=== PATIENT | female | born 1975 | race Caucasian/White ===

== ENCOUNTER 2017-07-11 11:38 | Inpatient (IN) | payer OTHER ==
[~2017-07-11] VITALS: Ht 167.6 cm; Wt 94.7 kg
[~2017-07-11 11:38] MED LIST: ALPR0.5T3 PO; AMLO5 PO; CALC.25 PO; DRIS50002 PO; LISI-515 PO; OYST500T11 PO; PERC5TAB12 PO; POTA20TA5 PO; PROZ40CA PO; SYNT88TA PO; XARE15TA PO
[2017-07-11 11:42] VITALS: BP_SYST 165; BP_DIAS 11; BP_DIAS 111; PULSE 77; RESP 18; TEMP 98.1; O2SAT 95
[2017-07-11] MEDS ORDERED: POTA-163 PO (11:54)
[2017-07-11] MEDS ORDERED: VITA1000 PO (11:54)
[2017-07-11] MEDS ORDERED: SODIUM CHLORIDE 0.9% FLUSH 10 ML FLUSH IVF PRN (12:15)
[2017-07-11] MEDS ORDERED: KETOROLAC TROMETHAMINE 30 MG/ML (IVP) VIAL IVP ONE (12:30)
[2017-07-11 12:51] LABS: BASOPHIL # 0.1 TH/MM3 (0-0.2); BASOPHIL % 1.4 % (0.0-2.0); HEMATOCRIT 40.9 % (35.0-46.0); HEMO FLAGS DIFF FINAL; LYMPH % 23.1 % (9.0-44.0); LYMPHOCYTE # 1.1 TH/MM3 (1.0-4.8); MEAN CELL VOLUME 93.3 FL (80.0-100.0); MEAN CORPUSCULAR HEMOGLOBIN 31.1 PG (27.0-34.0); MEAN CORPUSCULAR HGB CONC 33.3 % (32.0-36.0); MONO % 10.2 % (0.0-8.0); NEUT % 64.3 % (16.0-70.0); PLATELET COUNT 110 TH/MM3 (150-450); RED BLOOD COUNT 4.38 MIL/MM3 (4.00-5.30); RED CELL DISTRIBUTION WIDTH 12.6 % (11.6-17.2); WHITE BLOOD COUNT 4.7 TH/MM3 (4.0-11.0)
[2017-07-11 13:13] LABS: MAGNESIUM 1.1 MG/DL (1.5-2.5)
[2017-07-11 13:17] LABS: POTASSIUM 1.9 MEQ/L (3.5-5.1)
--- NOTE | 2017-07-11 13:23 | PD ---
HPI Chief Complaint: Back/ Neck Pain or Injury Time Seen by Provider: 12:11 Travel History International Travel<30 days: No Contact w/Intl Traveler<30days: No Traveled to known affect area: No History of Present Illness HPI 42-year-old female here with bilateral lower back pain radiating into the legs for the last 3 days. She believes the pain originated after she started a workout routine approximately a week ago. She denies fever, chills, incontinence, saddle anesthesia, paresthesia or weakness of the extremities. This morning she reports when she stood up from a standing position she fell to the ground because the pain in her low back was so severe. She also reports she feels "weak". She had similar symptoms previously approximately a year ago when she was found to have hypocalcemia and hypokalemia. She reports she is currently on potassium supplementation. PFSH Past Medical History Anxiety: Yes Cardiovascular Problems: Yes (HTN) Diminished Hearing: No Gastrointestinal Disorders: No Genitourinary: No Hypertension: Yes Musculoskeletal: Yes Neurologic: No Reproductive: No Respiratory: No Thyroid Disease: Yes (HYPO) Tetanus Vaccination: Unknown Influenza Vaccination: No ?: Not LMP: 07/05/17 : 3 Para: 1 Miscarriage: 0 : 2 Past Surgical History Appendectomy: Yes Section: Yes Gynecologic Surgery: Yes (C SECTION) Other Surgery: Yes (Breast implants) Social History Alcohol Use: Yes (OCCASIONALLY) Tobacco Use: No Substance Use: No Allergies-Medications (Allergen,Severity, Reaction): Coded Allergies: No Known Allergies (Verified Adverse Reaction, Unknown, 07/11/17) Reported Meds & Prescriptions Reported Meds & Active Scripts Active Synthroid (Levothyroxine Sodium) 88 Mcg Tab 88 Mcg PO DAILY@0600 Rocaltrol (Calcitriol) 0.25 Mcg Cap 0.25 Mcg PO DAILY Norvasc (Amlodipine Besylate) 5 Mg Tab 5 Mg PO DAILY Reported Potassium Chloride ER (Potassium Chloride) 20 Meq Tab 99 Meq PO DAILY Vitamin D-1000 (Cholecalciferol) 1,000 Unit Tab 50,000 Units PO WEEKLY Prozac (Fluoxetine HCl) 40 Mg Cap 40 Mg PO DAILY Lisinopril 20 Mg Tab 20 Mg PO DAILY Alprazolam 0.5 Mg Tab 0.5 Mg PO Q6H PRN Review of Systems Except as stated in HPI: all other systems reviewed are Neg Physical Exam Narrative GENERAL: Alert well-appearing female in no distress. SKIN: Warm and dry. HEAD: Normocephalic. EYES: No scleral icterus. No injection or drainage. NECK: Supple, trachea midline. No JVD or lymphadenopathy. CARDIOVASCULAR: Regular rate and rhythm without murmurs, gallops, or rubs. RESPIRATORY: Breath sounds equal bilaterally. No accessory muscle use. GASTROINTESTINAL: Abdomen soft, non-tender, nondistended. MUSCULOSKELETAL: No cyanosis, or edema. BACK: Bilateral tenderness to the low lumbar or spinous musculature . No midline spine tenderness. without obvious deformity. No CVA tenderness. NEUROLOGICAL: Awake and alert. Cranial nerves II through XII intact. Motor and sensory grossly within normal limits. Five out of 5 muscle strength in all muscle groups. Normal speech. Data Data Last Documented VS Vital Signs Date Time Temp Pulse Resp B/P (MAP) Pulse Ox O2 Delivery O2 Flow Rate FiO2 07/11/17 11:42 98.1 77 18 165/111 (129) 95 Orders Orders Basic Metabolic Panel (Bmp) (07/11/17 12:14) Complete Blood Count With Diff (07/11/17 12:14) Magnesium (Mg) (07/11/17 12:14) Iv Access Insert/Monitor (07/11/17 12:14) Sodium Chloride 0.9% Flush (Ns Flush) (07/11/17 12:15) Urinalysis - C+S If Indicated (07/11/17 12:16) Ketorolac Inj (Toradol Inj) (07/11/17 12:30) Protein Corrected Calcium(Pcc) (07/11/17 12:38) Ecg Monitoring (07/11/17 13:38) Oximetry (07/11/17 13:38) Thyroid Stimulating Hormone (07/11/17 13:38) Free T3 (07/11/17 13:38) Free Thyroxine (T4) (07/11/17 13:38) Potassium Chloride Eff (K-Lyte Cl Eff) (07/11/17 13:45) Electrocardiogram (07/11/17 13:43) Sodium Chlor 0.9% 1... W/Potassium Chlor (07/11/17 14:00) Sodium Chlor 0.9% 1000 Ml Inj (Ns 1000 M (07/11/17 14:00) Magnesium Oxide (Mag-Ox) (07/11/17 14:00) Potassium Chlor 20 Meq Premix (Kcl 20 Me (07/11/17 14:00) Labs Laboratory Tests Test 07/11/17 12:38 White Blood Count 4.7 TH/MM3 Red Blood Count 4.38 MIL/MM3 Hemoglobin 13.6 GM/DL Hematocrit 40.9 % Mean Corpuscular Volume 93.3 FL Mean Corpuscular Hemoglobin 31.1 PG Mean Corpuscular Hemoglobin Concent 33.3 % Red Cell Distribution Width 12.6 % Platelet Count 110 TH/MM3 Mean Platelet Volume 10.3 FL Neutrophils (%) (Auto) 64.3 % Lymphocytes (%) (Auto) 23.1 % Monocytes (%) (Auto) 10.2 % Eosinophils (%) (Auto) 1.0 % Basophils (%) (Auto) 1.4 % Neutrophils # (Auto) 3.0 TH/MM3 Lymphocytes # (Auto) 1.1 TH/MM3 Monocytes # (Auto) 0.5 TH/MM3 Eosinophils # (Auto) 0.0 TH/MM3 Basophils # (Auto) 0.1 TH/MM3 CBC Comment DIFF FINAL Differential Comment Blood Urea Nitrogen 5 MG/DL Creatinine 0.45 MG/DL Random Glucose 111 MG/DL Total Protein 7.8 GM/DL Calcium Level 7.4 MG/DL Magnesium Level 1.1 MG/DL Sodium Level 136 MEQ/L Potassium Level 1.9 MEQ/L Chloride Level 92 MEQ/L Carbon Dioxide Level 36.0 MEQ/L Anion Gap 8 MEQ/L Estimat Glomerular Filtration Rate 153 ML/MIN Protein Corrected Calcium 7.1 MG/DL [facility] Medical Decision Making Medical Screen Exam Complete: Yes Emergency Medical Condition: Yes Interpretation(s) Calcium 7.4 Potassium 1.9 EKG: sinus rhythm, rate 67, QT/QTc 422/437 Differential Diagnosis Musculoskeletal low back pain, sciatica, electrolyte abnormality Narrative Course 42-year-old female with history of hypothyroidism, hypertension, anxiety here with low back pain 3 days. Patient attributed the back pain to a new workout regimen she started approximately a week ago. Today the pain intensified and she had difficulty standing due to the pain in her thighs. Patient had a similar episode approximately one year ago where she was found to be severely hypokalemic with a potassium of 1.5. This was thought to be caused by her diuretic hydrochlorothiazide. She has been on potassium supplements since this event and taken off of the diuretic. The patient's history basic lab work was obtained Labs were reviewed. Potassium 1.9, calcium 7.4., Magnesium 1.1 Diagnosis Primary Impression: Hypokalemia Additional Impression: Hypocalcemia Iwona Canela Jul 11, 2017 13:23
[2017-07-11 13:36] LABS: CALCIUM-PROTEIN CORRECTED 7.1 MG/DL (8.5-10.1)
[2017-07-11] MEDS ORDERED: POTASSIUM CHLORIDE 25 MEQ EFFERVESCENT TAB PO ONE (13:45)
[2017-07-11] MEDS ORDERED: POTASSIUM CHLOR 20 MEQ PREMIX 100 ML IV ONE (14:00)
[2017-07-11] MEDS ORDERED: POTASSIUM CHLORIDE INJ 10 MEQ in SODIUM CHLOR 0.9% 1000 ML INJ 1,000 ML IV SCH (14:00)
[2017-07-11] MEDS ORDERED: SODIUM CHLOR 0.9% 1000 ML INJ 1,000 ML IV ONE (14:00)
[2017-07-11] MEDS ORDERED: MAGNESIUM OXIDE 400 MG TAB PO ONE (14:00)
[2017-07-11 14:10] VITALS: BP 150/76; PULSE 72; RESP 16; O2SAT 98; O2SAT 99
[2017-07-11] MEDS ORDERED: NALOXONE HCL 0.4 MG/ML AMP IV PUSH PRN (14:45)
[2017-07-11] MEDS ORDERED: SODIUM CHLORIDE 0.9% FLUSH 10 ML FLUSH IV FLUSH PRN (14:45)
[2017-07-11 15:00] VITALS: BP 140/86; PULSE 66; RESP 16; TEMP 98.2; O2SAT 96
[2017-07-11] MEDS ORDERED: BISACODYL 10 MG SUPP RECTAL PRN (15:00)
[2017-07-11] MEDS ORDERED: ACETAMINOPHEN 325 MG TAB PO PRN (15:00)
[2017-07-11] MEDS: POTASSIUM CHLOR 20 MEQ PREMIX 100 ML IV SCH ×3 (15:00→22:39)
[2017-07-11] MEDS ORDERED: LACTULOSE SYRUP 20 GM/30 ML CUP PO PRN (15:00)
[2017-07-11 15:02] VITALS: BP 142/93; PULSE 72; RESP 16; O2SAT 97
[2017-07-11] MEDS: MAGNESIUM SULFATE 1 GM PREMIX 100 ML IV SCH ×3 (16:00→19:01)
[2017-07-11 16:02] VITALS: BP 159/98; PULSE 72; RESP 16; O2SAT 98
[2017-07-11 16:09] LABS: FREE T3 2.96 PG/ML (2.18-3.98); FREE T4 1.86 NG/DL (0.76-1.46)
--- NOTE | 2017-07-11 17:39 | HHI.HP ---
[facility] Spike Wilkerson MD Admission Diagnosis hypokalemia, hypocalcemia, hypomagnesemia Diagnoses: (1) Hypokalemia Diagnosis: Principal (2) Hypomagnesemia Diagnosis: Principal (3) Hypocalcemia Diagnosis: Principal Chief Complaint: Back pain Travel History International Travel<30 Days: No Contact w/Intl Traveler <30 Da: No Traveled to Known Affected Are: No History of Present Illness Written by Livan Kenny, acting as scribe for Dr. Corbett on 07/11/17 at 17: 28. 42-year-old female with known history of hypertension, hypothyroidism , history of electrolyte disturbance, vegetarian who presented to the hospital because of back pain. Patient indicates that it is many years since she has been on any diet or exercise. She had her ankle surgery done one year ago and she thought that it was healed enough for her to start working out. Patient started doing physical activity and of last week and she developed significant back pain over the weekend. She did go to work yesterday but today when she was getting ready for work her back hurt too bad so she came to the emergency department for evaluation. Patient had evaluation done emergency department. The family and patient requested laboratory studies be performed because a year ago she had significant electrolyte disturbance and she has not been any replacement therapy since then. Patient had workup done to find that she has recurrent hypokalemia, hypocalcemia, hypomagnesium. Patient had extensive workup done a year ago with nephrology consultation who indicated that some of her deficiencies was related to HCTZ which was discontinued as well as her vegetarian lifestyle. It was recommended that she ingests increased plant protein in her HCTZ was discontinued. Patient is completely asymptomatic of electrolyte or maladies. She denies any weakness, paresthesia, muscle cramps, spasms, tremors. Patient indicates that she has not had any recurrent electrolyte abnormalities in outpatient setting. Patient does indicate that she does drink at least a gallon of water a day. She has just gotten off of her menses and she states that she does usually have very heavy diarrhea associated with her menses. Patient continues to be asymptomatic. It was recommended by the ER physician that the patient be admitted for further evaluation and management. Review of Systems Musculoskeletal: COMPLAINS OF: Back pain Except as stated in HPI: all other systems reviewed are Neg Past Family Social History Past Medical History Hypertension Hypothyroidism History of electrolyte abnormalities with hypokalemia, hypomagnesemia, hypocalcemia vegetarian Past Surgical History Left ankle surgery Appendectomy Breast augmentation Reported Medications Reported Meds & Active Scripts Active Synthroid (Levothyroxine Sodium) 88 Mcg Tab 88 Mcg PO DAILY@0600 Rocaltrol (Calcitriol) 0.25 Mcg Cap 0.25 Mcg PO DAILY Norvasc (Amlodipine Besylate) 5 Mg Tab 5 Mg PO DAILY Reported Potassium Chloride ER (Potassium Chloride) 20 Meq Tab 99 Meq PO DAILY Vitamin D-1000 (Cholecalciferol) 1,000 Unit Tab 50,000 Units PO WEEKLY Prozac (Fluoxetine HCl) 40 Mg Cap 40 Mg PO DAILY Lisinopril 20 Mg Tab 20 Mg PO DAILY Alprazolam 0.5 Mg Tab 0.5 Mg PO Q6H PRN Allergies: Coded Allergies: No Known Allergies (Verified Allergy, Unknown, 07/11/17) Family History Reviewed and unremarkable for any heart disease, lung disease, diabetes, cancer , seizures, stroke Social History Patient quit smoking 10 years ago, prior to that she smoked one pack a cigarettes a day since she was 21 years old. She denies any alcohol or illicit drug Physical Exam Vital Signs Vital Signs Date Time Temp Pulse Resp B/P (MAP) Pulse Ox O2 Delivery O2 Flow Rate FiO2 07/11/17 16:22 07/11/17 16:02 72 16 159/98 (118) 98 Room Air 07/11/17 15:02 72 16 142/93 (109) 97 Room Air 07/11/17 14:25 16 07/11/17 14:10 16 () 99 Room Air 07/11/17 11:42 98.1 77 18 165/111 (129) 95 Physical Exam GENERAL: Well-developed, well-nourished, in no acute distress. alert and orientated HEENT: Head is normocephalic without any lesions or masses noted. Facial features are symmetric. Eyes: Pupils equal round reactive to light. Extraocular muscles are intact. Conjunctivae were clear. Oropharyngeal: Pharynx without any erythema edema. Tongue is midline without deviation. Buccal mucosa is moist without any masses or lesions NECK: Supple without any masses. Trachea midline no deviation. No JVD, no bruits are appreciated CARDIAC: Regular rhythm, regular rate. S1/S2 are heard. No murmurs gallops or rubs. LUNGS: Clear to auscultation bilaterally. No wheeze, rhonchi or rales. No use of accessory muscles on inspiration or expiration. ABDOMEN: Soft, nontender. Nondistended. Bowel sounds heard in all 4 quadrants. No organomegaly or masses. Negative rebound, negative guarding EXTREMITIES: No edema, pulses are equal bilaterally. No cyanosis or clubbing NEUROLOGY: Mood and affect appear appropriate. Cranial nerves II through XII grossly intact. Muscle strength 5/5 in upper and lower extremities bilaterally. Deep tendon reflexes are 2+ in upper and lower extremities bilaterally. Laboratory Laboratory Tests Test 07/11/17 12:38 White Blood Count 4.7 Red Blood Count 4.38 Hemoglobin 13.6 Hematocrit 40.9 Mean Corpuscular Volume 93.3 Mean Corpuscular Hemoglobin 31.1 Mean Corpuscular Hemoglobin Concent 33.3 Red Cell Distribution Width 12.6 Platelet Count 110 Mean Platelet Volume 10.3 Neutrophils (%) (Auto) 64.3 Lymphocytes (%) (Auto) 23.1 Monocytes (%) (Auto) 10.2 Eosinophils (%) (Auto) 1.0 Basophils (%) (Auto) 1.4 Neutrophils # (Auto) 3.0 Lymphocytes # (Auto) 1.1 Monocytes # (Auto) 0.5 Eosinophils # (Auto) 0.0 Basophils # (Auto) 0.1 CBC Comment DIFF FINAL Differential Comment Blood Urea Nitrogen 5 Creatinine 0.45 Random Glucose 111 Total Protein 7.8 Calcium Level 7.4 Magnesium Level 1.1 Sodium Level 136 Potassium Level 1.9 Chloride Level 92 Carbon Dioxide Level 36.0 Anion Gap 8 Estimat Glomerular Filtration Rate 153 Protein Corrected Calcium 7.1 Free Thyroxine 1.86 Free Triiodothyronine (T3) pg/dL 2.96 Thyroid Stimulating Hormone 3rd Gen 3.770 Result Diagram: 07/11/17 1238 07/11/17 1238 Caprini VTE Risk Assessment Caprini VTE Risk Assessment: Mod/High Risk (score >= 2) Caprini Risk Assessment Model Point Value = 1 Point Value = 2 Point Value = 3 Point Value = 5 Age 41-60 Minor surgery BMI > 25 kg/m2 Swollen legs Varicose veins or History of unexplained or recurrent spontaneous Oral contraceptives or hormone replacement Sepsis (< 1 month) Serious lung disease, including pneumonia (< 1 month) Abnormal pulmonary function Acute myocardial infarction Congestive heart failure (< 1 month) History of inflammatory bowel disease Medical patient at bed rest Age 61-74 Arthroscopic surgery Major open surgery (> 45 min) Laparoscopic surgery (> 45 min) Malignancy Confined to bed (> 72 hours) Immobilizing plaster cast Central venous access Age >= 75 History of VTE Family history of VTE Factor V Leiden Prothrombin [id number] Lupus anticoagulant Anticardiolipin antibodies Elevated serum homocysteine Heparin-induced thrombocytopenia Other congenital or acquired thrombophilia Stroke (< 1 month) Elective arthroplasty Hip, pelvis, or leg fracture Acute spinal cord injury (< 1 month) Prophylaxis Regimen Total Risk Factor Score Risk Level Prophylaxis Regimen 0-1 Low Early ambulation 2 Moderate Order ONE of the following: *Sequential Compression Device (SCD) *Heparin 5000 units SQ BID 3-4 Higher Order ONE of the following medications: *Heparin 5000 units SQ TID *Enoxaparin/Lovenox 40 mg SQ daily (WT < 150 kg, CrCl > 30 mL/min) *Enoxaparin/Lovenox 30 mg SQ daily (WT < 150 kg, CrCl > 10-29 mL/min) *Enoxaparin/Lovenox 30 mg SQ BID (WT < 150 kg, CrCl > 30 mL/min) AND/OR *Sequential Compression Device (SCD) 5 or more Highest Order ONE of the following medications: *Heparin 5000 units SQ TID (Preferred with Epidurals) *Enoxaparin/Lovenox 40 mg SQ daily (WT < 150 kg, CrCl > 30 mL/min) *Enoxaparin/Lovenox 30 mg SQ daily (WT < 150 kg, CrCl > 10-29 mL/min) *Enoxaparin/Lovenox 30 mg SQ BID (WT < 150 kg, CrCl > 30 mL/min) AND *Sequential Compression Device (SCD) Assessment and Plan Assessment and Plan Electrolyte abnormalities with hypocalcemia, hypokalemia, hypomagnesemia Likely secondary to combination of excessive water ingestion, recent diarrhea , vegetarian diet Will replace with IV magnesium sulfate, IV and PO KCL, IV calcium gluconate. Repeat BMP and Mg level in the AM. Continue Calcitriol 0.25mcg Qday. Hypertension continue home medication Lisinopril 20mg Qday as well as Amlodipine 5mg Qday. Hypothyroidism TSH 3.77. Continue Levothyroxine 88mcg Qday. Full code. SCDs. This note was transcribed by humble Kenny PA-C. I, Dr. Josse Corbett personally performed the history, physical exam, and medical decision making; and confirmed the accuracy of the information in the transcribed note. Authenticated by Dr. Josse Corbett on 07/11/17 at 17:28. Physician Certification 2 Midnight Certification Type: Admission for Inpatient Services Order for Inpatient Services The services are ordered in accordance with Medicare regulations or non- Medicare payer requirements, as applicable. In the case of services not specified as inpatient-only, they are appropriately provided as inpatient services in accordance with the 2-midnight benchmark. Estimated LOS (days): 2 days is the estimated time the patient will need to remain in the hospital, assuming treatment plan goals are met and no additional complications. Post-Hospital Plan: Not yet determined Livan Kenny Jul 11, 2017 17:39 Janie Corbett DO Jul 11, 2017 23:42
[2017-07-11] MEDS ORDERED: ONDANSETRON HCL 4 MG/2 ML VIAL IVP PRN (18:00)
[2017-07-11] MEDS ORDERED: CALCIUM GLUCONATE INJ 2 GM in SODIUM CHLORIDE 0.9% INJ 100 ML IV ONE (19:00)
[2017-07-11] MEDS: SODIUM CHLORIDE 0.9% FLUSH 10 ML FLUSH IV FLUSH SCH (21:00)
[2017-07-11] MEDS ORDERED: SENNOSIDES 8.6 MG TAB PO PRN (21:00)
[2017-07-11] MEDS ORDERED: MAGNESIUM HYDROXIDE SUSP 30 ML CUP PO PRN (21:00)
--- NOTE | 2017-07-11 21:54 | EKG ---
Date Performed: 07/11/2017 Time Performed: 13:53:19 PTAGE: 42 years EKG: Sinus rhythm INCOMPLETE RIGHT BUNDLE BRANCH BLOCK NONSPECIFIC ST & T-WAVE ABNORMALITY BORDERLINE ECG PREVIOUS TRACING : 07/14/2016 09.54 Compared to prior tracing no significant change DOCTOR: João Fallon Interpretating Date/Time 07/11/2017 21:54:09
[2017-07-11] MEDS: POTASSIUM CHLORIDE 20 MEQ CONTROLLED RELEASE TAB PO SCH ×2 (22:00→22:40)
[2017-07-12] MEDS: MAGNESIUM SULFATE 1 GM PREMIX 100 ML IV SCH ×3 (02:03→02:04)
[2017-07-12] MEDS: POTASSIUM CHLOR 20 MEQ PREMIX 100 ML IV SCH ×3 (02:03→09:55)
[2017-07-12 04:00] VITALS: BP 154/103; PULSE 65; RESP 20; TEMP 98.1; O2SAT 94
[2017-07-12] MEDS: POTASSIUM CHLORIDE 20 MEQ CONTROLLED RELEASE TAB PO SCH (06:00)
[2017-07-12] MEDS: LEVOTHYROXINE SODIUM 88 MCG TAB PO SCH (06:12)
[2017-07-12 06:29] LABS: AUTOMATED NEUTROPHIL # 2.7 TH/MM3 (1.8-7.7); BASOPHIL % 0.8 % (0.0-2.0); EOSINOPHIL % 0.7 % (0.0-4.0); HEMATOCRIT 37.2 % (35.0-46.0); LYMPH % 23.7 % (9.0-44.0); MEAN CELL VOLUME 93.7 FL (80.0-100.0); MEAN CORPUSCULAR HEMOGLOBIN 31.1 PG (27.0-34.0); MEAN CORPUSCULAR HGB CONC 33.2 % (32.0-36.0); MONO % 9.9 % (0.0-8.0); NEUT % 64.9 % (16.0-70.0); PLATELET COUNT 94 TH/MM3 (150-450); RED BLOOD COUNT 3.97 MIL/MM3 (4.00-5.30); RED CELL DISTRIBUTION WIDTH 13.3 % (11.6-17.2); WHITE BLOOD COUNT 4.1 TH/MM3 (4.0-11.0)
[2017-07-12 06:47] LABS: HEMO FLAGS AUTO DIFF
[2017-07-12 06:56] LABS: BICARBONATE 36.8 MEQ/L (21.0-32.0); MAGNESIUM 1.5 MG/DL (1.5-2.5)
[2017-07-12 07:00] LABS: POTASSIUM 1.9 MEQ/L (3.5-5.1)
[2017-07-12 07:19] LABS: PLATELET ESTIMATE SMEAR LOW (NORMAL); PLATELET MORPHOLOGY NORMAL (NORMAL); SCAN/DIFF AUTO DIFF CONFIRMED
[2017-07-12 07:50] VITALS: BP 161/76; PULSE 74; RESP 20; TEMP 98.2; O2SAT 93
[2017-07-12] MEDS ORDERED: NS + KCL 20 MEQ INJ 1,000 ML IV ONE (08:15)
[2017-07-12] MEDS: amLODIPine BESYLATE 5 MG TAB PO SCH (08:36)
[2017-07-12] MEDS: SODIUM CHLORIDE 0.9% FLUSH 10 ML FLUSH IV FLUSH SCH ×2 (08:36→20:56)
[2017-07-12] MEDS: FLUoxetine HCL 20 MG CAP PO SCH (08:36)
[2017-07-12] MEDS: LISINOPRIL 20 MG TAB PO SCH (08:45)
[2017-07-12] MEDS: CALCITRIOL 0.25 MCG CAP PO SCH (08:45)
[2017-07-12] MEDS ORDERED: CALCIUM GLUCONATE INJ 2 GM in SODIUM CHLORIDE 0.9% INJ 100 ML IV ONE ×2 (09:00→22:00)
[2017-07-12] MEDS ORDERED: MAGNESIUM OXIDE 400 MG TAB PO ONE (10:15)
--- NOTE | 2017-07-12 10:27 | HHI.PR ---
Subjective Remarks Patient admitted to [facility] yesterday and was found to be a [facility] patient and transferred to my service today admitted for hypokalemia and hypocalcemia and hypomagnesium,patient just completed heavy period and always has diarrhea with period and runs baseline low potassium and is on supplement . Patient not 100% sure as to foods to eat will have dietary speak to her . el this am was 1.9 potassium and calcium low on IV treatment and will add po treatment as well stop potassium tablet was unable to take it. Objective Vitals GENERAL: SKIN: Warm and dry. HEAD: Atraumatic. Normocephalic. EYES: Pupils equal and round. No scleral icterus. No injection or drainage. ENT: No nasal bleeding or discharge. Mucous membranes pink and moist. NECK: Trachea midline. No JVD. CARDIOVASCULAR: Regular rate and rhythm. RESPIRATORY: No accessory muscle use. Clear to auscultation. Breath sounds equal bilaterally. GASTROINTESTINAL: Abdomen soft, non-tender, nondistended. Hepatic and splenic margins not palpable. MUSCULOSKELETAL: Extremities without clubbing, cyanosis, or edema. No obvious deformities. NEUROLOGICAL: Awake and alert. No obvious cranial nerve deficits. Motor grossly within normal limits. Five out of 5 muscle strength in the arms and legs. Normal speech. PSYCHIATRIC: Appropriate mood and affect; insight and judgment normal. Vital Signs Date Time Temp Pulse Resp B/P (MAP) Pulse Ox O2 Delivery O2 Flow Rate FiO2 07/12/17 07:50 98.2 74 20 161/76 (104) 93 07/12/17 04:00 98.1 65 20 154/103 (120) 94 07/11/17 16:22 07/11/17 16:02 72 16 159/98 (118) 98 Room Air 07/11/17 15:02 72 16 142/93 (109) 97 Room Air 07/11/17 15:00 98.2 66 16 140/86 (104) 96 07/11/17 14:25 16 07/11/17 14:10 16 () 99 Room Air 07/11/17 11:42 98.1 77 18 165/111 (129) 95 Result Diagram: 07/12/17 0515 07/12/17 0515 A/P Problem List: (1) Hypokalemia ICD Codes: E87.6 - Hypokalemia Status: Acute Plan: continue IV treatment add po potassium (2) Hypomagnesemia ICD Codes: E83.42 - Hypomagnesemia Plan: improved add po treatment (3) Hypocalcemia ICD Codes: E83.51 - Hypocalcemia Status: Acute Plan: on IV treatment add po supplement Assessment and Plan discharge when levels improve Grey Dempsey MD Jul 12, 2017 10:27
[2017-07-12] MEDS: POTASSIUM CHLORIDE 25 MEQ EFFERVESCENT TAB PO SCH (11:40)
[2017-07-12] MEDS: NS + KCL 20 MEQ INJ 1,000 ML IV SCH (11:40)
[2017-07-12 11:50] VITALS: BP 163/93; PULSE 75; RESP 20; TEMP 98.9; O2SAT 95
[2017-07-12 15:50] VITALS: BP 142/92; PULSE 72; RESP 20; TEMP 98.6; O2SAT 93
[2017-07-12 18:38] LABS: POTASSIUM 2.6 MEQ/L (3.5-5.1)
[2017-07-12 20:00] VITALS: BP 162/83; PULSE 82; RESP 18; TEMP 100.2; O2SAT 98
[2017-07-12] MEDS: CALCIUM CARBONATE 1.25 GM (CA 500 MG) TAB PO SCH (20:56)
[2017-07-12] MEDS ORDERED: POTASSIUM CHLORIDE 25 MEQ EFFERVESCENT TAB PO ONE (21:15)
[2017-07-13] VITALS: BP 157/97; PULSE 72; RESP 16; TEMP 97.7; O2SAT 95
[2017-07-13 04:00] VITALS: BP 146/92; PULSE 61; RESP 16; TEMP 98.1; O2SAT 93
[2017-07-13] MEDS: LEVOTHYROXINE SODIUM 88 MCG TAB PO SCH (05:47)
[2017-07-13 06:26] LABS: BICARBONATE 35.9 MEQ/L (21.0-32.0)
[2017-07-13 06:28] LABS: POTASSIUM 2.6 MEQ/L (3.5-5.1)
[2017-07-13 08:00] VITALS: BP 161/98; PULSE 70; RESP 20; TEMP 98.4; O2SAT 93
[2017-07-13 08:07] VITALS: PULSE 98
[2017-07-13] MEDS: CALCIUM CARBONATE 1.25 GM (CA 500 MG) TAB PO SCH ×2 (08:25→17:54)
[2017-07-13] MEDS: amLODIPine BESYLATE 5 MG TAB PO SCH (08:26)
[2017-07-13] MEDS: POTASSIUM CHLORIDE 25 MEQ EFFERVESCENT TAB PO SCH (08:26)
[2017-07-13] MEDS: CALCITRIOL 0.25 MCG CAP PO SCH (08:27)
[2017-07-13] MEDS: FLUoxetine HCL 20 MG CAP PO SCH (08:27)
[2017-07-13] MEDS: LISINOPRIL 20 MG TAB PO SCH (08:27)
[2017-07-13] MEDS: SODIUM CHLORIDE 0.9% FLUSH 10 ML FLUSH IV FLUSH SCH (08:27)
[2017-07-13] MEDS ORDERED: MAGNESIUM OXIDE 400 MG TAB PO SCH (09:00)
--- NOTE | 2017-07-13 10:45 | HHI.PR ---
Subjective Remarks Patient feeling good with no symptoms last year was in hospital for low potassium had normal renal ultrasound and was seen by nephrology was on diuretic for BP at that time which was d/c ed will try 2 iv bolus to run over 2 hours then recheck potassium calcium better on supplement s also on magnesium supplement . Objective Vitals GENERAL: SKIN: Warm and dry. HEAD: Atraumatic. Normocephalic. EYES: Pupils equal and round. No scleral icterus. No injection or drainage. ENT: No nasal bleeding or discharge. Mucous membranes pink and moist. NECK: Trachea midline. No JVD. CARDIOVASCULAR: Regular rate and rhythm. RESPIRATORY: No accessory muscle use. Clear to auscultation. Breath sounds equal bilaterally. GASTROINTESTINAL: Abdomen soft, non-tender, nondistended. Hepatic and splenic margins not palpable. MUSCULOSKELETAL: Extremities without clubbing, cyanosis, or edema. No obvious deformities. NEUROLOGICAL: Awake and alert. No obvious cranial nerve deficits. Motor grossly within normal limits. Five out of 5 muscle strength in the arms and legs. Normal speech. PSYCHIATRIC: Appropriate mood and affect; insight and judgment normal. Vital Signs Date Time Temp Pulse Resp B/P (MAP) Pulse Ox O2 Delivery O2 Flow Rate FiO2 07/13/17 08:00 98.4 70 20 161/98 (119) 93 07/13/17 04:00 98.1 61 16 146/92 (110) 93 07/13/17 00:00 97.7 72 16 157/97 (117) 95 07/12/17 20:00 100.2 82 18 162/83 (109) 98 07/12/17 15:50 98.6 72 20 142/92 (109) 93 07/12/17 11:50 98.9 75 20 163/93 (116) 95 07/13/17 07/13/17 07/14/17 15:00 23:00 07:00 Intake Total 223 ml Balance 223 ml IV Total 223 ml Result Diagram: 07/12/17 0515 07/13/17 0505 A/P Problem List: (1) Hypokalemia ICD Codes: E87.6 - Hypokalemia Status: Acute Plan: continue IV treatment add po potassium bolus potassium supplement and recheck levels (2) Hypomagnesemia ICD Codes: E83.42 - Hypomagnesemia Plan: improved add po treatment (3) Hypocalcemia ICD Codes: E83.51 - Hypocalcemia Status: Acute Plan: improved with po supplement Assessment and Plan discharge when levels improve Grey Dempsey MD Jul 13, 2017 10:45
[2017-07-13] MEDS: POTASSIUM CHLOR 20 MEQ PREMIX 100 ML IV SCH ×2 (10:53→12:57)
[2017-07-13] MEDS: NS + KCL 20 MEQ INJ 1,000 ML IV SCH (10:54)
[2017-07-13 12:00] VITALS: BP 140/91; PULSE 75; RESP 20; TEMP 98.9; O2SAT 96
[2017-07-13 16:00] VITALS: BP 155/96; PULSE 89; RESP 20; TEMP 99.6; O2SAT 94
[2017-07-13] MEDS ORDERED: MAGN400T2 PO (17:25)
[2017-07-13] MEDS ORDERED: CALC500 PO (17:25)
[2017-07-13] MEDS ORDERED: KLYTECL PO (17:25)
--- NOTE | 2017-07-13 17:34 | HHI.DS ---
Discharge Summary Admission Date Jul 11, 2017 at 14:44 Admitting Diagnosis hypokalemia, hypocalcemia, hypomagnesemia (1) Hypokalemia Diagnosis: Principal ICD Codes: E87.6 - Hypokalemia Status: Acute (2) Hypomagnesemia Diagnosis: Principal ICD Codes: E83.42 - Hypomagnesemia (3) Hypocalcemia Diagnosis: Principal ICD Codes: E83.51 - Hypocalcemia Status: Acute CBC/BMP: 07/12/17 0515 07/13/17 1615 Significant Findings Laboratory Tests Test 07/11/17 12:38 07/12/17 05:15 07/12/17 18:05 07/13/17 05:05 Platelet Count 110 TH/MM3 (150-450) 94 TH/MM3 (150-450) Monocytes (%) (Auto) 10.2 % (0.0-8.0) 9.9 % (0.0-8.0) Blood Urea Nitrogen 5 MG/DL (7-18) 3 MG/DL (7-18) 3 MG/DL (7-18) Creatinine 0.45 MG/DL (0.50-1.00) 0.42 MG/DL (0.50-1.00) 0.44 MG/DL (0.50-1.00) Random Glucose 111 MG/DL (74-106) Calcium Level 7.4 MG/DL (8.5-10.1) 7.0 MG/DL (8.5-10.1) 7.9 MG/DL (8.5-10.1) 8.3 MG/DL (8.5-10.1) Magnesium Level 1.1 MG/DL (1.5-2.5) Potassium Level 1.9 MEQ/L (3.5-5.1) 1.9 MEQ/L (3.5-5.1) 2.6 MEQ/L (3.5-5.1) 2.6 MEQ/L (3.5-5.1) Chloride Level 92 MEQ/L (98-107) 92 MEQ/L (98-107) 91 MEQ/L (98-107) Carbon Dioxide Level 36.0 MEQ/L (21.0-32.0) 36.8 MEQ/L (21.0-32.0) 35.9 MEQ/L (21.0-32.0) Protein Corrected Calcium 7.1 MG/DL (8.5-10.1) 7.0 MG/DL (8.5-10.1) Free Thyroxine 1.86 NG/DL (0.76-1.46) Thyroid Stimulating Hormone 3rd Gen 3.770 uIU/ML (0.358-3.740) Red Blood Count 3.97 MIL/MM3 (4.00-5.30) Platelet Estimate LOW (NORMAL) Sodium Level 134 MEQ/L (136-145) Test 07/13/17 16:15 PE at Discharge GENERAL: SKIN: Warm and dry. HEAD: Atraumatic. Normocephalic. EYES: Pupils equal and round. No scleral icterus. No injection or drainage. ENT: No nasal bleeding or discharge. Mucous membranes pink and moist. NECK: Trachea midline. No JVD. CARDIOVASCULAR: Regular rate and rhythm. RESPIRATORY: No accessory muscle use. Clear to auscultation. Breath sounds equal bilaterally. GASTROINTESTINAL: Abdomen soft, non-tender, nondistended. Hepatic and splenic margins not palpable. MUSCULOSKELETAL: Extremities without clubbing, cyanosis, or edema. No obvious deformities. NEUROLOGICAL: Awake and alert. No obvious cranial nerve deficits. Motor grossly within normal limits. Five out of 5 muscle strength in the arms and legs. Normal speech. PSYCHIATRIC: Appropriate mood and affect; insight and judgment normal. Hospital Course Patient was admitted with generalized weakness to [facility] and change to [facility] on ,with hypocalcemia hypokalemia and hypomagnesium and received IV replacement with eventual normalization of labs and symptoms improved . In review of record similar episode in past according to patient work up including renal evaluation was negative including renal ultrasound . I reviewed admit in 2016 and did have low calcium ,potassium and magnesium also had high PTH . I will discharge on calcium 500 q 12 potassium cl packet did not like pills 50meq q day and magnesium oxide 400 a day and will instruct patient to get labs bmp magnesium and i will recheck PTH and if elevated will get outpatient evaluation with endocrine and consider hyperparathyrid scan also tsh was a little high this will be rechecked as well. Will send to PCP. Patient discharged in stable condition. Pt Condition on Discharge: Good Discharge Disposition: Discharge Home Discharge Instructions DIET: Follow Instructions for: Heart Healthy Diet Activities you can perform: Regular-No Restrictions New Medications: Magnesium Oxide (Magnesium Oxide) 400 Mg Tab 400 MG PO DAILY for hypomagnesium MDD 400 for 30 Days, #30 TAB Oyster Shell (Oyster Calcium) 500 Mg Calcium (1250 Mg) Tab 500 MG PO Q12HR for low calcium MDD 1000 for 30 Days, #60 TAB Potassium Bicarb-Chloride Effervescent (Effervescent Potassium Chloride 25 Meq) 25 Meq Tab 50 MEQ PO DAILY for low potassium MDD 50meq for 30 Days, #60 TAB Continued Medications: Alprazolam (Alprazolam) 0.5 Mg Tab 0.5 MG PO Q6H PRN for ANXIETY, TAB 0 Refills Amlodipine (Norvasc) 5 Mg Tab 5 MG PO DAILY for HTN, #30 TAB Calcitriol (Rocaltrol) 0.25 Mcg Cap 0.25 MCG PO DAILY for VIT, #30 CAP Cholecalciferol (Vitamin D-1000) 1,000 Unit Tab 32677 UNITS PO WEEKLY for Nutritional Supplement, #1 BOTTLE 0 Refills Fluoxetine (Prozac) 40 Mg Cap 40 MG PO DAILY, #30 CAP 0 Refills Levothyroxine (Synthroid) 88 Mcg Tab 88 MCG PO DAILY@0600 for hypo, #30 TAB Lisinopril (Lisinopril) 20 Mg Tab 20 MG PO DAILY, #30 TAB 0 Refills Discontinued Medications: Potassium Chloride ER (Potassium Chloride ER) 20 Meq Tab 99 MEQ PO DAILY for Electrolyte Replacement, #30 TAB 0 Refills Additional Information lab work monday bmp,magnesium tsh thyroid panel and PTH Grey Dempsey MD Jul 13, 2017 17:34
== END 2017-07-13 18:13 | disposition home or self-care (01) | DRG 641 ==
LOC: PHEFT 11:38 → PHEDA 14:44 → PH3A 16:16
PROVIDERS: ADMIT Internal Medicine; ATTEND Internal Medicine
DX: E87.6 Hypokalemia (principal); E83.42 Hypomagnesemia; I10 Essential (primary) hypertension; E83.51 Hypocalcemia; E03.9 Hypothyroidism, unspecified; M54.5 Low back pain; F41.9 Anxiety disorder, unspecified; Z87.891 Personal history of nicotine dependence; R19.7 Diarrhea, unspecified
CPT/HCPCS: 80048; 82310; 83735; 84132; 84155; 84439; 84443; 84481; 85025; 93005; J0610; J1885; J3475; J3480; J7030

== ENCOUNTER 2017-08-20 14:37 | Observation (INO) | payer OTHER ==
[~2017-08-20] VITALS: Ht 167.6 cm; Wt 89.4 kg
[~2017-08-20 14:37] MED LIST changes: +CALC500 PO; -DRIS50002 PO; +KLYTECL PO; +MAGN400T2 PO; -OYST500T11 PO; -PERC5TAB12 PO; -POTA20TA5 PO; +VITA1000 PO; -XARE15TA PO
[2017-08-20 14:40] VITALS: BP 167/108; PULSE 128; RESP 16; TEMP 97.7; O2SAT 97
[2017-08-20 15:07] LABS: AUTOMATED NEUTROPHIL # 5.5 TH/MM3 (1.8-7.7); BASOPHIL # 0.1 TH/MM3 (0-0.2); BASOPHIL % 0.9 % (0.0-2.0); EOSINOPHIL % 0.6 % (0.0-4.0); HEMATOCRIT 40.5 % (35.0-46.0); HEMOGLOBIN 13.6 GM/DL (11.6-15.3); LYMPH % 13.5 % (9.0-44.0); LYMPHOCYTE # 0.9 TH/MM3 (1.0-4.8); MEAN CELL VOLUME 94.8 FL (80.0-100.0); MEAN CORPUSCULAR HEMOGLOBIN 31.8 PG (27.0-34.0); MEAN CORPUSCULAR HGB CONC 33.5 % (32.0-36.0); MEAN PLATELET VOLUME 8.9 FL (7.0-11.0); MONO % 4.3 % (0.0-8.0); MONOCYTE # 0.3 TH/MM3 (0-0.9); NEUT % 80.7 % (16.0-70.0); PLATELET COUNT 75 TH/MM3 (150-450); RED BLOOD COUNT 4.28 MIL/MM3 (4.00-5.30); RED CELL DISTRIBUTION WIDTH 14.8 % (11.6-17.2); WHITE BLOOD COUNT 6.8 TH/MM3 (4.0-11.0)
[2017-08-20] MEDS ORDERED: SODIUM CHLOR 0.9% 1000 ML INJ 1,000 ML IV ONE ×2 (15:30→17:15)
[2017-08-20] MEDS ORDERED: ONDANSETRON HCL 4 MG/2 ML VIAL IV PUSH ONE (15:30)
--- NOTE | 2017-08-20 15:31 | PD ---
HPI Chief Complaint: Cold / Flu Symptoms Time Seen by Provider: 15:19 Travel History International Travel<30 days: No Contact w/Intl Traveler<30days: No Traveled to known affect area: No History of Present Illness HPI 42yo F presented to the ED with N/V and diarrhea x4 days. Pt reports that she woke up with a sore throat on Monday, which then progressed to N/V and diarrhea on . She states that all of her co-workers have been sick, along with her daughter and boyfriend. She has not had a flu shot. She reports that she has not taken her temperature at home, but had chills, myalgias and a headache. Past medical history includes hypothyroidism and HTN. Pt denies hematemesis, hematochezia, coffee ground emesis, abdominal pain, cough, SOB or chest pain. Modifying Factors: None Associated Signs & Symptoms: Nausea, vomiting, diarrhea, chills, myalgias Risk Factors: None PFSH Past Medical History Anxiety: Yes Heart Rhythm Problems: No Cancer: No Cardiovascular Problems: Yes High Cholesterol: No Chest Pain: No Congestive Heart Failure: No Diabetes: No Diminished Hearing: No Endocrine: Yes Gastrointestinal Disorders: No Genitourinary: No Hypertension: Yes Immune Disorder: No Musculoskeletal: No Neurologic: No Psychiatric: No Reproductive: No Respiratory: No Thyroid Disease: Yes (hypothyroid) Tetanus Vaccination: > 5 Years Influenza Vaccination: Yes ?: Not : 3 Para: 1 Miscarriage: 0 : 2 Past Surgical History Abdominal Surgery: Yes (appendectomy) AICD: No Appendectomy: Yes Arteriovenous Shunt: No Body Medical Devices: breast implants, plates in L ankle from surg repair Cardiac Surgery: No Section: Yes Ear Surgery: No Endocrine Surgery: No Eye Surgery: No Genitourinary Surgery: No Gynecologic Surgery: Yes () Insulin Pump: No Joint Replacement: No Oral Surgery: No Pacemaker: No Thoracic Surgery: No Other Surgery: Yes (Breast implants) Social History Alcohol Use: Yes (OCCASIONALLY) Tobacco Use: No Substance Use: No Allergies-Medications (Allergen,Severity, Reaction): Coded Allergies: No Known Allergies (Verified Allergy, Unknown, 08/20/17) Reported Meds & Prescriptions Reported Meds & Active Scripts Active Magnesium Oxide 400 Mg Tab 400 Mg PO DAILY MDD 400 30 Days Effervescent Potassium Chloride 25 Meq (Potassium Bicarb/Potassium Chloride) 25 Meq Tab 50 Meq PO DAILY MDD 50meq 30 Days Oyster Calcium (Oyster Shell) 500 Mg Calcium (1250 Mg) Tab 500 Mg PO Q12HR MDD 1000 30 Days Synthroid (Levothyroxine Sodium) 88 Mcg Tab 88 Mcg PO DAILY@0600 Rocaltrol (Calcitriol) 0.25 Mcg Cap 0.25 Mcg PO DAILY Norvasc (Amlodipine Besylate) 5 Mg Tab 5 Mg PO DAILY Reported Vitamin D-1000 (Cholecalciferol) 1,000 Unit Tab 50,000 Units PO WEEKLY Prozac (Fluoxetine HCl) 40 Mg Cap 40 Mg PO DAILY Lisinopril 20 Mg Tab 20 Mg PO DAILY Alprazolam 0.5 Mg Tab 0.5 Mg PO Q6H PRN Review of Systems Except as stated in HPI: all other systems reviewed are Neg Physical Exam Narrative GENERAL: 42yo F who is well developed and well nourished. Alert and oriented x3. Appears anxious and in acute distress. SKIN: Warm and diaphoretic. HEAD: Atraumatic. Normocephalic. ENT: No nasal bleeding or discharge. Mucous membranes pink and moist. Mild pharyngeal erythema without exudates or edema. Tympanic membranes intact, without erythema or bulging. NECK: Trachea midline. No JVD. Supple. CARDIOVASCULAR: Tachycardic with regular rhythm. RESPIRATORY: No accessory muscle use. Clear to auscultation. Breath sounds equal bilaterally. Abdominal exam: Soft, nontender to palpation, positive bowel sounds, no guarding or rebound. No palpable hepatomegaly or splenomegaly. GENITOURINARY: Normal external genitalia without lesions or erythema. Vaginal vault without blood or drainage. Cervical os was closed without drainage. No cervical motion tenderness. Uterus nontender and nonenlarged. Bilateral adnexa nontender without masses. MUSCULOSKELETAL: Extremities without clubbing, cyanosis, or edema. No obvious deformities. NEUROLOGICAL: Awake and alert. No obvious cranial nerve deficits. Motor grossly within normal limits. Normal speech. PSYCHIATRIC: Appropriate mood and affect; insight and judgment normal. Data Data Last Documented VS Vital Signs Date Time Temp Pulse Resp B/P (MAP) Pulse Ox O2 Delivery O2 Flow Rate FiO2 08/20/17 19:51 98.2 105 18 149/84 (105) 96 Room Air Orders Orders Complete Blood Count With Diff (08/20/17 14:57) Comprehensive Metabolic Panel (08/20/17 14:57) Urinalysis - C+S If Indicated (08/20/17 14:57) Iv Access Insert/Monitor (08/20/17 14:57) Lipase (08/20/17 14:57) Sodium Chlor 0.9% 1000 Ml Inj (Ns 1000 M (08/20/17 15:30) Ondansetron Inj (Zofran Inj) (08/20/17 15:30) Influenzae A/B Antigen (08/20/17 15:22) Ed Urine Pregnancytest Poc (08/20/17 15:25) Ct Abd/Pel W Iv Contrast(Rout) (08/20/17 16:02) Ns + Kcl 20 Meq Inj (Ns + Kcl 20 Meq Inj (08/20/17 16:15) Sodium Chlor 0.9% 1000 Ml Inj (Ns 1000 M (08/20/17 17:15) Iohexol 350 Inj (Omnipaque 350 Inj) (08/20/17 17:27) Gc And Chlamydia Pcr (08/20/17 18:49) Wet Prep Profile (08/20/17 18:49) Ceftriaxone Inj (Rocephin Inj) (08/20/17 19:00) Azithromycin Powd Pack (Zithromax Powd P (08/20/17 19:00) Ed Discharge Order (08/20/17 19:51) Labs Laboratory Tests Test 08/20/17 15:00 08/20/17 18:55 White Blood Count 6.8 TH/MM3 Red Blood Count 4.28 MIL/MM3 Hemoglobin 13.6 GM/DL Hematocrit 40.5 % Mean Corpuscular Volume 94.8 FL Mean Corpuscular Hemoglobin 31.8 PG Mean Corpuscular Hemoglobin Concent 33.5 % Red Cell Distribution Width 14.8 % Platelet Count 75 TH/MM3 Mean Platelet Volume 8.9 FL Neutrophils (%) (Auto) 80.7 % Lymphocytes (%) (Auto) 13.5 % Monocytes (%) (Auto) 4.3 % Eosinophils (%) (Auto) 0.6 % Basophils (%) (Auto) 0.9 % Neutrophils # (Auto) 5.5 TH/MM3 Lymphocytes # (Auto) 0.9 TH/MM3 Monocytes # (Auto) 0.3 TH/MM3 Eosinophils # (Auto) 0.0 TH/MM3 Basophils # (Auto) 0.1 TH/MM3 CBC Comment AUTO DIFF Differential Comment AUTO DIFF CONFIRMED Blood Urea Nitrogen 7 MG/DL Creatinine 0.72 MG/DL Random Glucose 150 MG/DL Total Protein 8.9 GM/DL Albumin 4.1 GM/DL Calcium Level 8.6 MG/DL Alkaline Phosphatase 125 U/L Aspartate Amino Transf (AST/SGOT) 395 U/L Alanine Aminotransferase (ALT/SGPT) 130 U/L Total Bilirubin 3.2 MG/DL Sodium Level 129 MEQ/L Potassium Level 3.0 MEQ/L Chloride Level 87 MEQ/L Carbon Dioxide Level 25.8 MEQ/L Anion Gap 16 MEQ/L Estimat Glomerular Filtration Rate 89 ML/MIN Lipase 150 U/L Clue Cells (Wet Prep) NONE SEEN Vaginal Trichomonas (Wet Prep) NONE SEEN Vaginal Yeast (Wet Prep) NONE SEEN MDM Medical Decision Making Medical Screen Exam Complete: Yes Emergency Medical Condition: Yes Medical Record Reviewed: Yes Interpretation(s) Laboratory Tests Test 08/20/17 15:00 08/20/17 18:55 Platelet Count 75 TH/MM3 (150-450) Neutrophils (%) (Auto) 80.7 % (16.0-70.0) Lymphocytes # (Auto) 0.9 TH/MM3 (1.0-4.8) Random Glucose 150 MG/DL (74-106) Total Protein 8.9 GM/DL (6.4-8.2) Alkaline Phosphatase 125 U/L (45-117) Aspartate Amino Transf (AST/SGOT) 395 U/L (15-37) Alanine Aminotransferase (ALT/SGPT) 130 U/L (10-53) Total Bilirubin 3.2 MG/DL (0.2-1.0) Sodium Level 129 MEQ/L (136-145) Potassium Level 3.0 MEQ/L (3.5-5.1) Chloride Level 87 MEQ/L (98-107) Anion Gap 16 MEQ/L (5-15) Last 24 hours Impressions Abdomen/Pelvis CT 08/20/17 1602 Signed Impressions: Service Date/Time: Sunday, August 20, 2017 17:18 - CONCLUSION: 1. Plaques left ovarian cystic lesion which is indeterminate. 2. Moderate hepatic steatosis. Benigno Yun MD Differential Diagnosis Influenza versus viral syndrome versus dehydration versus metabolic issues versus cholecystitis versus pancreatitis versus gastroenteritis Narrative Course Pelvic exam is unremarkable. Wet prep is negative. HCG is negative. CAT scan shows hepatis steatosis and left ovarian cyst. It is otherwise unremarkable for any cholecystitis or other acute intra-abdominal processes. She was given IV fluids in the ER, potassium was low and potassium was given in the ER. Lipase is normal. LFTs may be related to hepatic steatosis. It will need to be followed up further with primary care physician. However, she states she has been sexually active without protection a few weeks ago and have been treated empirically for possible STI as well. Her GC is pending. My plan would be to release her with follow-up to primary care physician. We will give her symptomatic relief or nausea and vomiting. She should return for any worsening in symptoms. The plan was discussed with her and she states understanding. Diagnosis Primary Impression: Ovarian cyst Additional Impressions: Elevated liver enzymes Vomiting and diarrhea Med/Other Pt SpecificInfo: Prescription(s) given Scripts Loperamide (Imodium A-D) 2 Mg Capsule 2 MG PO DIRECTED Y for DIARRHEA, #12 CAP 0 Refills One capsule after each loose stool. Not to exceed 8 tablets per day. Prov: Kingsley Milan MD 08/20/17 Potassium Chloride ER (K-Tab) 20 Meq Tab 20 MEQ PO BID for Electrolyte Replacement, #10 TAB 0 Refills Prov: Kingsley Milan MD 08/20/17 Ondansetron Odt (Zofran Odt) 4 Mg Tab 4 MG SL Q6HR Y for Nausea/Vomiting, #7 TAB 0 Refills Prov: Kingsley Milan MD 08/20/17 Disposition: 01 DISCHARGE HOME Condition: Stable Kingsley Milan MD Aug 20, 2017 15:31
[2017-08-20 15:54] LABS: ALBUMIN 4.1 GM/DL (3.4-5.0); ALKALINE PHOSPHATASE 125 U/L (45-117); ALT (GPT) 130 U/L (10-53); AST (GOT) 395 U/L (15-37); BICARBONATE 25.8 MEQ/L (21.0-32.0); BLOOD UREA NITROGEN 7 MG/DL (7-18); CALCIUM 8.6 MG/DL (8.5-10.1); CHLORIDE 87 MEQ/L (98-107); CREATININE 0.72 MG/DL (0.50-1.00); GLOMERULAR FILTRATION RATE 89 ML/MIN (>89); GLUCOSE,RANDOM 150 MG/DL (74-106); LIPASE 150 U/L (73-393); SODIUM (NA) 129 MEQ/L (136-145); TOTAL BILIRUBIN ADULT 3.2 MG/DL (0.2-1.0); TOTAL PROTEIN 8.9 GM/DL (6.4-8.2)
[2017-08-20 16:09] VITALS: BP 166/108; PULSE 100; RESP 18; O2SAT 97
[2017-08-20] MEDS ORDERED: NS + KCL 20 MEQ INJ 1,000 ML IV ONE (16:15)
[2017-08-20] MEDS ORDERED: IOHEXOL 350 MG/ML 10 ML VIAL (for RAD DIAG) IVCONTRAST ONE (17:27)
--- NOTE | 2017-08-20 17:47 | RADRPT ---
EXAM DATE/TIME: 08/20/2017 17:18 [place] COMPARISON: No previous studies available for comparison. INDICATIONS : Non specific abdominal pain. IV CONTRAST: 95 cc Omnipaque 350 (iohexol) IV ORAL CONTRAST: No oral contrast ingested. RADIATION DOSE: 20.96 CTDIvol (mGy) MEDICAL HISTORY : Hypertension. SURGICAL HISTORY : Appendectomy. section. ENCOUNTER: Initial ACUITY: 1 week PAIN SCALE: 5/10 LOCATION: abdomen TECHNIQUE: Volumetric scanning of the abdomen and pelvis was performed. Using automated exposure control and ad justment of the mA and/or kV according to patient size, radiation dose was kept as low as reasonably achievable to obtain optimal diagnostic quality images. DICOM format image data is available electro nically for review and comparison. FINDINGS: LOWER LUNGS: The visualized lower lungs are clear. LIVER: Homogeneous density without lesion. There is no dilation of the biliary tree. No calcified gallston es. There is moderate hepatic steatosis SPLEEN: Normal size without lesion. PANCREAS: Within normal limits. KIDNEYS: Normal in size and shape. There is no mass, stone or hydronephrosis. ADRENAL GLANDS: Within normal limits. VASCULAR: There is no aortic aneurysm. BOWEL/MESENTERY: No oral contrast was given limiting the sensitivity of the exam. The stomach, small bowel, and colon demonstrate no acute abnormality. There is no free intraperitoneal air or fluid. ABDOMINAL WALL: Within normal limits. RETROPERITONEUM: There is no lymphadenopathy. BLADDER: No wall thickening or mass. REPRODUCTIVE: The uterus and right adnexa are unremarkable. There is a complex cystic lesion in the left ovary willow uring up to approximately 4 x 3.2 cm in diameter. The majority of this is cystic and 10 [place] un its in density. There is a small area of calcification and possible soft tissue density. INGUINAL: There is no lymphadenopathy or hernia. MUSCULOSKELETAL: Within normal limits for patient age. CONCLUSION: 1. Plaques left ovarian cystic lesion which is indeterminate. 2. Moderate hepatic steatosis. Benigno Yun MD on August 20, 2017 at 17:38 Board Certified Radiologist. This report was verified electronically.
[2017-08-20 18:09] VITALS: BP 146/91; PULSE 112; RESP 16; O2SAT 97
[2017-08-20] MEDS ORDERED: AZITHROMYCIN PWD FOR SUSP 1 GM PACKET PO ONE (19:00)
[2017-08-20] MEDS ORDERED: cefTRIAXone INJ 250 MG in SODIUM CHLORIDE 0.9% INJ 100 ML IV ONE (19:00)
[2017-08-20 19:51] VITALS: BP 149/84; PULSE 105; RESP 18; TEMP 98.2; O2SAT 96
[2017-08-20] MEDS ORDERED: ZOFR4TAB3 SL (20:05)
[2017-08-20] MEDS ORDERED: LOPE-1 PO (20:05)
[2017-08-20] MEDS ORDERED: POTA1TAB4 PO (20:05)
[2017-08-20] MEDS ORDERED: KLORCONEF PO (20:11)
[2017-08-20 20:59] VITALS: BP 195/100; PULSE 127; RESP 18; O2SAT 96
--- NOTE | 2017-08-20 21:25 | PD ---
Physical Exam Time Seen by Provider: 21:22 Narrative When the patient got up out of bed to go home, she collapsed. Her heart rate was in the 130s. This was a sinus tachycardia. She was brought back to the bed. Despite having gotten 2 L of normal saline, she is still not provided us with urine. She did give us a stool which was foul-smelling. The patient does not abuse alcohol and has never had hepatitis but does have elevated liver enzymes. Data Data Last Documented VS Vital Signs Date Time Temp Pulse Resp B/P (MAP) Pulse Ox O2 Delivery O2 Flow Rate FiO2 08/20/17 19:51 98.2 105 18 149/84 (105) 96 Room Air Orders Orders Complete Blood Count With Diff (08/20/17 14:57) Comprehensive Metabolic Panel (08/20/17 14:57) Urinalysis - C+S If Indicated (08/20/17 14:57) Iv Access Insert/Monitor (08/20/17 14:57) Lipase (08/20/17 14:57) Sodium Chlor 0.9% 1000 Ml Inj (Ns 1000 M (08/20/17 15:30) Ondansetron Inj (Zofran Inj) (08/20/17 15:30) Influenzae A/B Antigen (08/20/17 15:22) Ed Urine Pregnancytest Poc (08/20/17 15:25) Ct Abd/Pel W Iv Contrast(Rout) (08/20/17 16:02) Ns + Kcl 20 Meq Inj (Ns + Kcl 20 Meq Inj (08/20/17 16:15) Sodium Chlor 0.9% 1000 Ml Inj (Ns 1000 M (08/20/17 17:15) Iohexol 350 Inj (Omnipaque 350 Inj) (08/20/17 17:27) Gc And Chlamydia Pcr (08/20/17 18:49) Wet Prep Profile (08/20/17 18:49) Ceftriaxone Inj (Rocephin Inj) (08/20/17 19:00) Azithromycin Powd Pack (Zithromax Powd P (08/20/17 19:00) Ed Discharge Order (08/20/17 19:51) Sodium Chlor 0.9% 1000 Ml Inj (Ns 1000 M (08/20/17 21:15) Enteric Path (Stool) (1/14/18 21:14) C Diff Toxin Pcr (08/20/17 21:14) Giardia Antigen (Stool) (08/20/17 21:14) Magnesium (Mg) (08/20/17 15:00) Admit Order (Ed Use Only) (08/20/17 21:20) Labs Laboratory Tests Test 08/20/17 15:00 08/20/17 18:55 White Blood Count 6.8 TH/MM3 Red Blood Count 4.28 MIL/MM3 Hemoglobin 13.6 GM/DL Hematocrit 40.5 % Mean Corpuscular Volume 94.8 FL Mean Corpuscular Hemoglobin 31.8 PG Mean Corpuscular Hemoglobin Concent 33.5 % Red Cell Distribution Width 14.8 % Platelet Count 75 TH/MM3 Mean Platelet Volume 8.9 FL Neutrophils (%) (Auto) 80.7 % Lymphocytes (%) (Auto) 13.5 % Monocytes (%) (Auto) 4.3 % Eosinophils (%) (Auto) 0.6 % Basophils (%) (Auto) 0.9 % Neutrophils # (Auto) 5.5 TH/MM3 Lymphocytes # (Auto) 0.9 TH/MM3 Monocytes # (Auto) 0.3 TH/MM3 Eosinophils # (Auto) 0.0 TH/MM3 Basophils # (Auto) 0.1 TH/MM3 CBC Comment AUTO DIFF Differential Comment AUTO DIFF CONFIRMED Blood Urea Nitrogen 7 MG/DL Creatinine 0.72 MG/DL Random Glucose 150 MG/DL Total Protein 8.9 GM/DL Albumin 4.1 GM/DL Calcium Level 8.6 MG/DL Alkaline Phosphatase 125 U/L Aspartate Amino Transf (AST/SGOT) 395 U/L Alanine Aminotransferase (ALT/SGPT) 130 U/L Total Bilirubin 3.2 MG/DL Sodium Level 129 MEQ/L Potassium Level 3.0 MEQ/L Chloride Level 87 MEQ/L Carbon Dioxide Level 25.8 MEQ/L Anion Gap 16 MEQ/L Estimat Glomerular Filtration Rate 89 ML/MIN Lipase 150 U/L Clue Cells (Wet Prep) NONE SEEN Vaginal Trichomonas (Wet Prep) NONE SEEN Vaginal Yeast (Wet Prep) NONE SEEN MDM Medical Record Reviewed: Yes Supervised Visit with MADELINE: Yes Differential Diagnosis Viral gastroenteritis, moderate dehydration, hepatitis, clostridium difficile, bacterial enteritis Narrative Course The patient has likely a viral gastroenteritis with moderate dehydration. Her liver enzyme elevation is likely due to viral causes. She apparently continues to be dehydrated and did not make urine despite 2 L of fluid. She will be 23 hour observation for hydration. Diagnosis Primary Impression: Ovarian cyst Additional Impressions: Vomiting and diarrhea Elevated liver enzymes Admitting Information Admitting Physician Requests: Observation Referrals: Spike Wilkerson MD (PCP) call for appointment Patient Instructions: General Instructions, Ovarian Cyst (ED), Acute Nausea and Vomiting (ED), Acute Diarrhea (ED), Nutrition Tips for Relief of Diarrhea ( ED) Departure Forms: Work Release, Enter return to work date: Aug 22, 2017 Tests/Procedures Scripts Potassium Bicarbonate Effervescent (K-Vescent) 25 Meq Tab 50 MEQ PO DAILY for Electrolyte Replacement, #7 TAB 0 Refills Prov: Kingsley Milan MD 08/20/17 Loperamide (Imodium A-D) 2 Mg Capsule 2 MG PO DIRECTED Y for DIARRHEA, #12 CAP 0 Refills One capsule after each loose stool. Not to exceed 8 tablets per day. Prov: Kingsley Milan MD 08/20/17 Ondansetron Odt (Zofran Odt) 4 Mg Tab 4 MG SL Q6HR Y for Nausea/Vomiting, #7 TAB 0 Refills Prov: Kingsley Milan MD 08/20/17 Disposition: 01 DISCHARGE HOME Condition: Stable Dario Kenny MD Aug 20, 2017 21:25
[2017-08-20 21:37] LABS: MAGNESIUM 1.2 MG/DL (1.5-2.5)
[2017-08-20] MEDS: SODIUM CHLOR 0.9% 1000 ML INJ 1,000 ML IV SCH ×2 (21:48→22:47)
[2017-08-20] MEDS: D5-NS + KCL 20 MEQ INJ 1,000 ML IV SCH (21:49)
[2017-08-20] MEDS: ONDANSETRON HCL 4 MG/2 ML VIAL IV PUSH PRN (21:58)
[2017-08-20 21:59] VITALS: BP 145/90; PULSE 98; RESP 18; O2SAT 97
[2017-08-20 23:35] LABS: BILIRUBIN, URINE MOD (NEG); GLUCOSE,URINE NEG (NEG); KETONE, URINE 15 mg/dL (NEG); NITRITE,URINE POS (NEG); URINE LEUKOCYTE ESTERASE NEG (NEG)
[2017-08-20 23:37] LABS: BLOOD, URINE TRACE (NEG)
[2017-08-20 23:44] LABS: URINE COLOR AMBER (YELLW/STRAW)
[2017-08-20 23:45] LABS: SQUAMOUS EPITHELIAL CELL URINE 0-5 /hpf (0-5)
[2017-08-20 23:46] LABS: AMORPHOUS SEDIMENT, URINE SMALL; BACTERIA, URINE OCC /hpf
[2017-08-21] VITALS (9 sets, daily range): BP systolic 131–156; BP diastolic 78–105; PULSE 75–96; RESP 16–18; TEMP 98–99; O2SAT 96–98
[2017-08-21] MEDS: D5-NS + KCL 20 MEQ INJ 1,000 ML IV SCH ×3 (05:38→20:53)
[2017-08-21 06:00] LABS: BASOPHIL # 0.1 TH/MM3 (0-0.2); BASOPHIL % 1.4 % (0.0-2.0); EOSINOPHIL % 0.7 % (0.0-4.0); HEMATOCRIT 35.5 % (35.0-46.0); HEMOGLOBIN 11.7 GM/DL (11.6-15.3); LYMPH % 16.1 % (9.0-44.0); LYMPHOCYTE # 0.8 TH/MM3 (1.0-4.8); MEAN CELL VOLUME 93.7 FL (80.0-100.0); MEAN CORPUSCULAR HEMOGLOBIN 30.9 PG (27.0-34.0); MEAN CORPUSCULAR HGB CONC 32.9 % (32.0-36.0); MEAN PLATELET VOLUME 9.2 FL (7.0-11.0); MONO % 4.5 % (0.0-8.0); MONOCYTE # 0.2 TH/MM3 (0-0.9); NEUT % 77.3 % (16.0-70.0); PLATELET COUNT 42 TH/MM3 (150-450); RED BLOOD COUNT 3.78 MIL/MM3 (4.00-5.30); RED CELL DISTRIBUTION WIDTH 14.4 % (11.6-17.2); WHITE BLOOD COUNT 5.1 TH/MM3 (4.0-11.0)
[2017-08-21 06:17] LABS: BICARBONATE 25.4 MEQ/L (21.0-32.0); CALCIUM 6.9 MG/DL (8.5-10.1); DIRECT BILIRUBIN ADULT 0.9 MG/DL (0.0-0.2)
[2017-08-21 06:20] LABS: CREATININE 0.61 MG/DL (0.50-1.00); INDIRECT BILIRUBIN 1.2 MG/DL (0.0-0.8); TOTAL BILIRUBIN ADULT 2.1 MG/DL (0.2-1.0)
[2017-08-21] MEDS ORDERED: POTASSIUM CHLORIDE 25 MEQ EFFERVESCENT TAB PO ONE ×2 (06:45→15:00)
[2017-08-21 07:04] LABS: TOTAL PROTEIN 6.6 GM/DL (6.4-8.2)
[2017-08-21 07:11] LABS: CALCIUM-PROTEIN CORRECTED 7.2 MG/DL (8.5-10.1)
[2017-08-21] MEDS: CALCIUM CARBONATE 1.25 GM (CA 500 MG) TAB PO SCH ×3 (07:22→20:53)
--- NOTE | 2017-08-21 08:25 | MH ---
cc: JANNY GEE M.D. DATE OF ADMISSION: 08/20/2017 DATE OF 1975 ADMISSION DIAGNOSIS 1. Vomiting and diarrhea, probable viral gastroenteritis. 2. Hypokalemia. 3. Hypocalcemia. 4. Significant thrombocytopenia without bleeding of questionable etiology. 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 5. Elevated liver enzymes. 6. Fatty liver on CT scan of the abdomen. 7. Hypertension. 8. Hypothyroidism. 9. Obesity. PERTINENT HISTORY This is a 42-year-old white female who started about 6 days ago with a sore throat, then 2 days later she developed vomiting and diarrhea with frequent episodes of diarrhea that was loose and watery. She was having vomiting intermittently as well. She had been around coworkers and also a daughter who was sick. She had no documented fever but did have chills. She had no cough, no dysuria, urgency, frequency. No rectal bleeding. No hematuria. No abdominal pain. She came to the ED yesterday and was given a lot of IV fluids as well as potassium, given medication for nausea. She, however, after several hours in the ED last night she attempted to go home but as soon as they got her up to walk she just pretty much was so weak she collapsed. She was admitted overnight. She is still weak, has had no vomiting, however since yesterday. Her potassium has come back low, even with potassium during the night. It is still 2.9 and her calcium was 6.9 with a protein corrected calcium of 7.2. She is on calcium at home and on vitamin D. She also apparently is on potassium at home for some reason, I talked with her private physician Dr. Spike Wilkerson and he is not aware of her having hypoparathyroidism, or he was not really aware that she was taking Rocaltrol and vitamin D. From his records he did not know that she was on potassium either. Her platelet count has come back low this morning at 42,000. Looking through the records in the hospital she did have a low platelet count on 07/12/2017 of 94,000. She was drinking alcohol until she quit about 2 months ago. She was taking a couple shots of vodka a day and had been doing that for a couple years. She was admitted for weakness, gastroenteritis, electrolyte imbalance. PAST MEDICAL HISTORY She is under treatment for hypertension, hypothyroidism. She takes medication for anxiety and panic attacks. She takes a potassium tablet daily for no certain reason. She is on Rocaltrol, vitamin D and calcium. She denies any heart disease, diabetes, no kidney disease that she is aware of. No stroke or seizure. She has had chickenpox. PAST SURGICAL HISTORY She had an appendectomy, one , had saline breast implants bilaterally. He has had surgery for left ankle fracture. ALLERGIES None. MEDICATIONS 1. She is on lisinopril 20 mg a day. 2. Norvasc 5 mg daily. 3. Levothyroxine 88 mcg a day. 4. Fluoxetine 20 mg two tablets each day. 5. Alprazolam 0.5 mg, she just uses a half as needed for anxiety attack. 6. She takes potassium chloride effervescent 25 mEq two daily. 7. She is on calcium 500 mg twice a day. 8. She takes Rocaltrol (Calcitriol) 0.25 mcg daily. 9. She takes 50,000 units of vitamin D tablet weekly. 10. She takes magnesium oxide 400 mg daily. FAMILY HISTORY Her mother is living in good health, has some anxiety. Father is 63 in good health. SOCIAL HISTORY She has never smoked. She was drinking two shot glasses of vodka a day until about 2 months ago. She is times one. She has a daughter that lives with her. She works at [employer]. REVIEW OF SYSTEMS GENERAL: She has generalized weakness and chills. HEENT: No current sore throat but originally had a sore throat. No significant headache. No vision problem. No nasal drainage. CARDIOVASCULAR: No chest pain, orthopnea, PND. PULMONARY: Denies cough or shortness of breath. GI: As mentioned. : No dysuria, urgency, frequency, hematuria. EXTREMITIES: Without swelling. NEURO: No focal weakness or sensory loss. No confusion. PHYSICAL EXAMINATION GENERAL: Obese white female, in no significant distress. VITAL SIGNS: Her current vital signs: Her temperature was 98, pulse 87, respirations 16, BP 156/94, pulse ox 96% on room air. HEENT: TMs clear. Nose negative. Mouth without inflammation or lesion. NECK: Without bruit. No JVD. HEART: Regular rate and rhythm. No murmur. LUNGS: Clear. ABDOMEN: Soft, nontender, no masses. EXTREMITIES: No edema. Pulses 2+. SKIN: Negative. NEURO: Oriented x3. Cranial nerves intact. Motor sensory intact. LABORATORY Her white count was 6.8 last night, it is 5.1 today, hemoglobin was 13.6 last night, 11.7 today, platelet count last night was 75,000, is down to 42,000 today. Her potassium was 3.0 last night with sodium 129, this morning her sodium is 138 but her potassium is still low at 2.9. Her carbon dioxide was 25.8 and 25.4 today. BUN is 4, creatinine 0.61 today, glucose 123. Her calcium last evening was 8.6, was 6.9 this morning with protein corrected calcium was 7.2. Her bilirubin was 3.2 last night, it is 2.1 this morning with an indirect bilirubin of 1.2. Her AST last night was 395 with an ALT of 130, AST was 269, ALT 90 today, alkaline phosphatase was 88 this morning. Her total protein was 8.9 yesterday but it was 6.6 this morning. Her albumin was 3.0 this morning, lipase was 150. A CT scan of the abdomen last night showed no acute abdomen process. She did have a complex cystic lesion in the left ovary that was 4.4 x 3.2 cm. She had some moderate hepatic steatosis. She had negative test for influenza A and B antigen. C. Difficile was negative. She had chlamydia DNA PCR that was non-detected and a gonorrhea DNA PCR that was non-detected. Urine was positive for nitrites and moderate bilirubin, occasional bacteria. Wet prep done in the ED was negative for Trichomonas, yeast, clue cells. ASSESSMENT As noted. PLAN We will continue with IV fluids with potassium and give her some oral potassium. Will put her on Os-Nate 500 mg three times a day. Continue her vitamin D and Rocaltrol. Obtain a hematology consult for her thrombocytopenia. A urine culture was ordered last night based on the urine but she really did not have any symptoms of a UTI. She did feel a little better this morning. Her diarrhea has become a little more formed now. We will recheck her potassium later today. MD MARCELINO Schuler/JERRICA /7:34 AM 7:52 AM
[2017-08-21] MEDS ORDERED: CALCIUM CARBONATE 1.25 GM (CA 500 MG) TAB PO SCH (09:00)
[2017-08-21] MEDS: CALCITRIOL 0.25 MCG CAP PO SCH (09:00)
[2017-08-21] MEDS: MAGNESIUM OXIDE 400 MG TAB PO SCH (09:48)
[2017-08-21] MEDS: FLUoxetine HCL 20 MG CAP PO SCH (09:48)
[2017-08-21] MEDS: ALPRAZolam 0.5 MG TAB PO PRN ×2 (09:48→15:24)
--- NOTE | 2017-08-21 10:15 | MB ---
cc: Garrett LOCK M.D., RYAN R. M.D. DATE OF 1975. DATE OF CONSULTATION 08/21/2017 TIME OF CONSULTATION 08:15 a.m. REQUESTING PHYSICIAN Consult requested by the ER physicians. PRIMARY CARE PHYSICIAN Dr. 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 CHIEF COMPLAINT Mr. Lundberg reports a four-day history of nausea, vomiting and diarrhea. She reports feeling weak and fatigued last night so she came into the emergency department. She denies bruising or easy bleeding, however, she does report having had a single episode of menstrual/vaginal bleeding which was not consistent with a typical menstrual cycle. HISTORY OF PRESENT ILLNESS Ms. Lundberg is a 42-year-old female. She lives at home with her 9-year-old daughter. The patient is recently . She works for a local [employer]. Ms. Lundberg reports being in her usual fair state of health up until about four days ago when she developed soreness in the throat and feverish feeling. She reports this was shortly thereafter followed by nausea associated with vomiting and diarrhea. The patient reports having two to three episodes of vomitus every day, she reports her oral intake was severely limited and she reports having had numerous watery bowel movements over the past 48 hours. In fact she tells me she lost count of how many times she had to use the restroom for diarrhea yesterday. The patient presented to the emergency department earlier this morning and underwent evaluation. She was assessed to have dehydration. Routine blood work including CBC indicated a platelet count of 42,000, this was confirmed on manual differential and manual count. Her chemistries revealed severe hypokalemia and hypocalcemia as well. Her liver enzymes were deranged with elevated bilirubin levels, elevated AST, ALT and low albumin. The patient does endorse a history of drinking otx-re-pbual drinks a day. She tells me she has not drank in about 2 months. She tells me she has been drinking more heavily since she had her divorce. Imaging studies of the abdomen including CT abdomen and pelvis performed on 08/20/2017 indicates steatohepatitis. No additional pathologic findings were identified. The spleen was without focal lesions and was nonenlarged on independent review. Her peripheral smear was also reviewed personally and independently, there were findings of low platelet counts and the platelets reviewed included a giant platelets. PAST MEDICAL HISTORY 1. Obesity. 2. Hypothyroidism. 3. History of ITP when she was younger. 4. Hypertension. 5. History of anxiety. PAST SURGICAL HISTORY 1. She reports having had breast augmentation surgery. 2. . SOCIAL HISTORY The patient is . She tells me she had been drinking two or three drinks a day up until about a 1-1/2 to 2 months ago. 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 FAMILY HISTORY Parents are both living and are well. Her brother has diabetes. No oncologic or hematology diagnoses noted. ALLERGIES No known drug allergies. CURRENT INPATIENT MEDICATIONS 1. D5 normal saline with KCl at 125 cc/hour. 2. Alprazolam 0.5 mg p.o. q.6 hours. 3. Calcitriol 0.25 mcg p.o. daily. 4. Calcium carbonate 500 mg p.o. q.8 hours. 5. Fluoxetine 40 mg p.o. daily. 6. Levothyroxine 88 mcg p.o. daily. 7. Imodium 2 mg p.o. q.6 h. 8. Magnesium oxide 400 mg p.o. daily. 9. Zofran 4 mg IV q.6 hours. REVIEW OF SYSTEMS A 13-point review of systems was obtained. The following are the pertinent positives and negatives: CONSTITUTIONAL: The patient reports fatigue, weakness, feverish feeling. She reports loss of appetite. HEENT: Denies headaches, blurry vision, difficulty swallowing. She does report soreness in her throat. GI: Reports nausea and vomiting. She reports diarrhea with watery stools. She denies hematochezia, melena, or hematochezia. : No complaints. RESPIRATORY: Denies difficulty breathing, cough or hemoptysis. CARDIOVASCULAR: Denies angina-like chest pain, PND, orthopnea. PSYCHIATRIC: Reports chronic anxiety and tremulousness. SKIN: No complaints. UG/REPRODUCTIVE: She reports having had a heavy menstrual cycle last week which was somewhat off cycle and off schedule. PHYSICAL EXAMINATION VITAL SIGNS: Temperature 99 degrees Fahrenheit, heart rate 88 beats per minute, respiratory rate 16, blood pressure 153/105, O2 sat is 98% on room air. GENERAL PHYSICAL APPEARANCE: Ms. Lundberg is a young female. She is of medium height and heavy-set. She appears to be in no acute distress but is somewhat anxious and tremulous. HEENT: Head atraumatic, normocephalic. Conjunctivae are not pale; sclerae are anicteric. EOMI, PERRLA. Oral Exam - No pharyngeal erythema. NECK EXAM: No palpable cervical or supraclavicular lymphadenopathy. RESPIRATORY EXAM: Good air movement bilaterally. Good breath sounds. CARDIOVASCULAR: Regular rate and rhythm, S1-S2. No obvious murmurs, rubs or gallops. ABDOMINAL EXAM: Protuberant belly, soft, nontender, nondistended. No palpable organ enlargement specifically hepatosplenomegaly. LOWER EXTREMITIES: No pretibial edema or calf tenderness. GERONTOLOGY AIDE: No focal sensory or motor deficits. She does have a coarse tremor of the bilateral upper extremities. No evidence of overt bleeding. LABORATORY FINDINGS Blood work dated 08/21/2017: WBC count 5.1, hemoglobin 11.7 gm/dl, hematocrit 35.5%, platelet count is 482. MPV is 9.2, absolute neutrophil count is 4. Review of peripheral smear dated 08/11/2017: Platelets appear to be enlarged, they are decreased in number. I would estimate the platelet count to be close to 50,000 on manual count. RBCs: Normocytic normochromic, without evidence of salome cells or target cells. WBCs: Adequate in number, adequate granulation of the granulated leukocytes. No evidence of immaturity noted. Chemistries dated 08/21/2017: Sodium 138, potassium 3.9, chloride 101, bicarb 25.4, BUN 4, creatinine 0.61, EGFR 108, random glucose 123, calcium 7.2, total bilirubin 2.1, direct bilirubin 0.19, indirect bilirubin 1.2, AST 269, AST 90, alkaline phosphatase 88, albumin is 3. IMAGING STUDIES CT of abdomen and pelvis with IV contrast dated 08/20/2017 indicates plaques in the left ovarian cystic lesion which is indeterminate. Moderate hepatic steatosis. No splenomegaly is noted. ASSESSMENT Mr. Lundberg is a 42-year-old female who presented to [facility] last night with complaints of nausea, vomiting and diarrhea. She had developed weakness and fatigue as a result. She reports having had soreness in the throat predating the GI symptoms and that she had multiple sick contacts to have symptoms of fevers, sore throat and headaches though not GI complaints. The patient was noted on workup to have thrombocytopenia. The thrombocytopenia has been gradually progressive since July of 2017 and on July 11, 2017, her platelet count was 110,000 and over the past month her platelets have declined to 40,000. The platelet count was manually reviewed on peripheral smear and I would estimate her platelets to be closer to 50,000 than to 42,000. Giant platelets were noted as well which indicates possible immune-mediated thrombocytopenia. The patient does report a history of regular alcohol consumption. She tells me she has decreased her alcohol consumption over the past 1-1/2 months but does admit to having drank heavily prior to that following her recent divorce. Imaging studies of the abdomen and pelvis indicate steatosis of the liver without splenomegaly. RECOMMENDATIONS 1. Thrombocytopenia: Given the appearance of her peripheral smear, i.e. 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 There may be additional factors contributing to the thrombocytopenia as well including functional hypersplenism with splenic sequestration as well as possible marrow toxicity secondary to heavy alcohol consumption. At this point I would recommend monitoring. I would initiate her on first-line treatment with corticosteroids such as prednisone at a dose of 1 mg/kg. Should her platelet counts drop significantly, i.e. less than 35,000. 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 She may have a late relapse at this point. I will see her in my clinic in the upcoming weeks to assess/reassess her thrombocytopenia. From a hematologic standpoint, I would be comfortable with her being discharged so long as her platelet counts remained over 35,000. Repeat CBC either later today or early tomorrow to reassess. MD LEVY Pulido/THANG /8:37 AM /9:34 AM BRANDIE
[2017-08-21 12:03] LABS: HEPATITIS A AB IGM NEGATIVE (NEGATIVE); HEPATITIS B CORE AB IGM NEGATIVE (NEGATIVE); HEPATITIS B SURFACE ANTIGEN NEGATIVE (NEGATIVE); HEPATITIS C AB IgG NEGATIVE (NEGATIVE)
[2017-08-21] MEDS: LISINOPRIL 20 MG TAB PO SCH (15:24)
[2017-08-21] MEDS: LOPERAMIDE HCL 2 MG CAP PO PRN (15:25)
[2017-08-22 00:38] VITALS: BP 132/97; PULSE 77; RESP 16; TEMP 99.3; O2SAT 97
[2017-08-22] MEDS: D5-NS + KCL 20 MEQ INJ 1,000 ML IV SCH (04:55)
[2017-08-22] MEDS: CALCIUM CARBONATE 1.25 GM (CA 500 MG) TAB PO SCH (04:56)
[2017-08-22] MEDS ORDERED: LEVOTHYROXINE SODIUM 88 MCG TAB PO SCH (06:00)
[2017-08-22 06:22] LABS: AUTOMATED NEUTROPHIL # 3.3 TH/MM3 (1.8-7.7); BASOPHIL % 0.6 % (0.0-2.0); EOSINOPHIL # 0.1 TH/MM3 (0-0.4); EOSINOPHIL % 2.1 % (0.0-4.0); HEMATOCRIT 34.6 % (35.0-46.0); HEMOGLOBIN 11.4 GM/DL (11.6-15.3); LYMPH % 19.4 % (9.0-44.0); LYMPHOCYTE # 0.8 TH/MM3 (1.0-4.8); MEAN CELL VOLUME 94.9 FL (80.0-100.0); MEAN CORPUSCULAR HEMOGLOBIN 31.2 PG (27.0-34.0); MEAN CORPUSCULAR HGB CONC 32.8 % (32.0-36.0); MEAN PLATELET VOLUME 10.1 FL (7.0-11.0); MONO % 5.1 % (0.0-8.0); MONOCYTE # 0.2 TH/MM3 (0-0.9); NEUT % 72.8 % (16.0-70.0); PLATELET COUNT 35 TH/MM3 (150-450); RED BLOOD COUNT 3.64 MIL/MM3 (4.00-5.30); RED CELL DISTRIBUTION WIDTH 14.6 % (11.6-17.2); WHITE BLOOD COUNT 4.4 TH/MM3 (4.0-11.0)
[2017-08-22 06:54] LABS: ALBUMIN 3.1 GM/DL (3.4-5.0); BICARBONATE 29.9 MEQ/L (21.0-32.0); CALCIUM 7.4 MG/DL (8.5-10.1); CREATININE 0.51 MG/DL (0.50-1.00); DIRECT BILIRUBIN ADULT 0.8 MG/DL (0.0-0.2); INDIRECT BILIRUBIN 0.8 MG/DL (0.0-0.8); MAGNESIUM 0.9 MG/DL (1.5-2.5); TOTAL BILIRUBIN ADULT 1.6 MG/DL (0.2-1.0); TOTAL PROTEIN 6.8 GM/DL (6.4-8.2)
[2017-08-22 07:42] LABS: CALCIUM-PROTEIN CORRECTED 7.6 MG/DL (8.5-10.1)
[2017-08-22 08:00] VITALS: BP 153/103; PULSE 80; RESP 16; TEMP 98.2; O2SAT 98
[2017-08-22] MEDS ORDERED: POTASSIUM CHLORIDE 25 MEQ EFFERVESCENT TAB PO ONE (08:15)
[2017-08-22] MEDS: MAGNESIUM OXIDE 400 MG TAB PO SCH (08:36)
[2017-08-22] MEDS: LISINOPRIL 20 MG TAB PO SCH (08:39)
[2017-08-22] MEDS: CALCITRIOL 0.25 MCG CAP PO SCH (08:40)
[2017-08-22] MEDS: FLUoxetine HCL 20 MG CAP PO SCH (08:40)
[2017-08-22] MEDS ORDERED: amLODIPine BESYLATE 5 MG TAB PO SCH (09:00)
[2017-08-22] MEDS ORDERED: predniSONE 20 MG TAB PO SCH (09:00)
--- NOTE | 2017-08-22 09:03 | HHI.PR ---
Subjective Remarks Patient states her diarrhea has resolved. No abdominal pain, nausea, vomiting. She states she feels much better and has no complaints today. She was seen by Dr Guevara (hematology) yesterday for thrombocytopenia and he thinks she likely has ITP and he suggested starting her on Prednisone if her platelet count went down to 35,000 which it did this morning. I see that he has already put her on oral Prednisone 60mg daily. Patient states she would like to go home today. Objective Vitals Vital Signs Date Time Temp Pulse Resp B/P (MAP) Pulse Ox O2 Delivery O2 Flow Rate FiO2 08/22/17 08:00 98.2 80 16 153/103 (120) 98 08/22/17 00:38 99.3 77 16 132/97 (109) 97 08/21/17 20:00 99.0 82 16 142/90 (107) 97 08/21/17 17:55 98.7 78 16 146/90 (108) 98 08/21/17 12:00 98.7 86 16 142/97 (112) 98 08/22/17 08/22/17 08/23/17 15:00 23:00 07:00 Intake Total 943 ml Balance 943 ml Intake Oral 420 ml IV Total 523 ml # Voids 2 # Bowel Movements 0 Result Diagram: 08/22/17 0522 08/22/17 05 Other Results Laboratory Tests Test 08/20/17 15:00 08/20/17 18:55 08/20/17 21:00 08/20/17 23:20 White Blood Count 6.8 TH/MM3 Red Blood Count 4.28 MIL/MM3 Hemoglobin 13.6 GM/DL Hematocrit 40.5 % Mean Corpuscular Volume 94.8 FL Mean Corpuscular Hemoglobin 31.8 PG Mean Corpuscular Hemoglobin Concent 33.5 % Red Cell Distribution Width 14.8 % Platelet Count 75 TH/MM3 Mean Platelet Volume 8.9 FL Neutrophils (%) (Auto) 80.7 % Lymphocytes (%) (Auto) 13.5 % Monocytes (%) (Auto) 4.3 % Eosinophils (%) (Auto) 0.6 % Basophils (%) (Auto) 0.9 % Neutrophils # (Auto) 5.5 TH/MM3 Lymphocytes # (Auto) 0.9 TH/MM3 Monocytes # (Auto) 0.3 TH/MM3 Eosinophils # (Auto) 0.0 TH/MM3 Basophils # (Auto) 0.1 TH/MM3 CBC Comment AUTO DIFF Differential Comment AUTO DIFF CONFIRMED Blood Urea Nitrogen 7 MG/DL Creatinine 0.72 MG/DL Random Glucose 150 MG/DL Total Protein 8.9 GM/DL Albumin 4.1 GM/DL Calcium Level 8.6 MG/DL Magnesium Level 1.2 MG/DL Alkaline Phosphatase 125 U/L Aspartate Amino Transf (AST/SGOT) 395 U/L Alanine Aminotransferase (ALT/SGPT) 130 U/L Total Bilirubin 3.2 MG/DL Sodium Level 129 MEQ/L Potassium Level 3.0 MEQ/L Chloride Level 87 MEQ/L Carbon Dioxide Level 25.8 MEQ/L Anion Gap 16 MEQ/L Estimat Glomerular Filtration Rate 89 ML/MIN Lipase 150 U/L Clue Cells (Wet Prep) NONE SEEN Vaginal Trichomonas (Wet Prep) NONE SEEN Vaginal Yeast (Wet Prep) NONE SEEN Chlamydia trachomatis DNA (PCR) NOT DETECTED Neisseria gonorrhoeae DNA (PCR) NOT DETECTED Stool C. difficile Toxin (PCR) NEGATIVE Stl C. difficile Toxin Epiderm 027 PRESUMPTIVE NEGATIVE Urine Color ELENA Urine Turbidity CLEAR Urine pH 6.0 Urine Specific [place] GREATER THAN 1.035 Urine Protein 30 mg/dL Urine Glucose (UA) NEG mg/dL Urine Ketones 15 mg/dL Urine Occult Blood TRACE Urine Nitrite POS Urine Bilirubin MOD Urine Leukocyte Esterase NEG Urine Squamous Epithelial Cells 0-5 /hpf Urine Amorphous Sediment SMALL Urine Bacteria OCC /hpf Microscopic Urinalysis Comment CULTURE INDICATED Test 08/21/17 05:55 08/21/17 11:05 08/22/17 05:22 White Blood Count 5.1 TH/MM3 4.4 TH/MM3 Red Blood Count 3.78 MIL/MM3 3.64 MIL/MM3 Hemoglobin 11.7 GM/DL 11.4 GM/DL Hematocrit 35.5 % 34.6 % Mean Corpuscular Volume 93.7 FL 94.9 FL Mean Corpuscular Hemoglobin 30.9 PG 31.2 PG Mean Corpuscular Hemoglobin Concent 32.9 % 32.8 % Red Cell Distribution Width 14.4 % 14.6 % Platelet Count 42 TH/MM3 35 TH/MM3 Mean Platelet Volume 9.2 FL 10.1 FL Neutrophils (%) (Auto) 77.3 % 72.8 % Lymphocytes (%) (Auto) 16.1 % 19.4 % Monocytes (%) (Auto) 4.5 % 5.1 % Eosinophils (%) (Auto) 0.7 % 2.1 % Basophils (%) (Auto) 1.4 % 0.6 % Neutrophils # (Auto) 4.0 TH/MM3 3.3 TH/MM3 Lymphocytes # (Auto) 0.8 TH/MM3 0.8 TH/MM3 Monocytes # (Auto) 0.2 TH/MM3 0.2 TH/MM3 Eosinophils # (Auto) 0.0 TH/MM3 0.1 TH/MM3 Basophils # (Auto) 0.1 TH/MM3 0.0 TH/MM3 CBC Comment AUTO DIFF AUTO DIFF Differential Comment AUTO DIFF CONFIRMED AUTO DIFF CONFIRMED Platelet Estimate LOW Platelet Morphology Comment ENLARGED Red Cell Morphology Comment NORMAL Blood Urea Nitrogen 4 MG/DL 2 MG/DL Creatinine 0.61 MG/DL 0.51 MG/DL Random Glucose 123 MG/DL 111 MG/DL Total Protein 6.6 GM/DL 6.8 GM/DL Albumin 3.0 GM/DL 3.1 GM/DL Calcium Level 6.9 MG/DL 7.4 MG/DL Alkaline Phosphatase 88 U/L 82 U/L Aspartate Amino Transf (AST/SGOT) 269 U/L 278 U/L Alanine Aminotransferase (ALT/SGPT) 90 U/L 96 U/L Total Bilirubin 2.1 MG/DL 1.6 MG/DL Direct Bilirubin 0.9 MG/DL 0.8 MG/DL Sodium Level 138 MEQ/L 139 MEQ/L Potassium Level 2.9 MEQ/L 3.3 MEQ/L 3.3 MEQ/L Chloride Level 101 MEQ/L 101 MEQ/L Carbon Dioxide Level 25.4 MEQ/L 29.9 MEQ/L Anion Gap 12 MEQ/L 8 MEQ/L Estimat Glomerular Filtration Rate 108 ML/MIN 132 ML/MIN Protein Corrected Calcium 7.2 MG/DL 7.6 MG/DL Indirect Bilirubin 1.2 MG/DL 0.8 MG/DL Hepatitis A IgM Antibody NEGATIVE Hepatitis B Surface Antigen NEGATIVE Hepatitis B Core IgM Antibody NEGATIVE Hepatitis C Antibody NEGATIVE Magnesium Level 0.9 MG/DL Imaging Last Impressions Abdomen/Pelvis CT 08/20/17 1602 Signed Impressions: Service Date/Time: Sunday, August 20, 2017 17:18 - CONCLUSION: 1. Plaques left ovarian cystic lesion which is indeterminate. 2. Moderate hepatic steatosis. Benigno Yun MD Objective Remarks Exam: Obese white female in no distress. 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 Continue on Calcium at home. --Hypokalemia --Hypertension --Hypothyroidism --Anxiety with panic attacks --Fatty liver --Elevated liver enzymes likely due a combination of viral etiology and fatty liver disease--her enzymes are improving --Hypomagnesemia Plan: Her Amlodipine was resumed this morning and she will continue her Lisinopril for hypertension. I am planning on discharging her today to followup with her PCP (Dr Wilkerson) and hematology (Dr Guevara). I will order Prednisone for her to take at home. I will discuss this with Dr Guevara this morning. She will continue on calcium 500mg three times a day. I will continue her on KCL at home 25meq daily. I will give her some Magnesium oxide 400mg twice a day since her magnesium was a little low likely from her diarrhea. I will infuse her with MgSO4 this morning prior to her going home also. She was also encouraged to not go back to using alcohol and to lose weight in view of her abnormal liver enzymes and fatty liver. Severiano Garcia MD Aug 22, 2017 09:03
[2017-08-22] MEDS ORDERED: MAGNESIUM SULFATE 1 GM PREMIX 100 ML IV ONE (09:15)
[2017-08-22] MEDS: ONDANSETRON HCL 4 MG/2 ML VIAL IV PUSH PRN (10:34)
[2017-08-22] MEDS: LOPERAMIDE HCL 2 MG CAP PO PRN (10:34)
[2017-08-22 10:46] LABS: FOLATE 3.5 NG/ML (3.1-17.5)
[2017-08-22] MEDS ORDERED: CALC500 PO (11:57)
[2017-08-22] MEDS ORDERED: KLORCONEF PO (11:57)
[2017-08-22] MEDS ORDERED: PRED20 PO (11:57)
[2017-08-22] MEDS ORDERED: MAGN400T2 PO (11:57)
[2017-08-22 12:00] VITALS: BP 152/97; PULSE 78; RESP 16; TEMP 98.2; O2SAT 96
[2017-08-22] MEDS ORDERED: MAGNESIUM OXIDE 400 MG TAB PO SCH (18:00)
== END 2017-08-22 12:57 | disposition home or self-care (01) ==
LOC: PHED 14:37 → PHEDA 21:22 → PHEDH 08-21 01:12 → PH3A 08-21 08:10
PROVIDERS: ADMIT Family Medicine; ATTEND Family Medicine
DX: A08.4 Viral intestinal infection, unspecified (principal); E83.51 Hypocalcemia; E87.6 Hypokalemia; J02.9 Acute pharyngitis, unspecified; E86.0 Dehydration; M79.1 Myalgia; K75.81 Nonalcoholic steatohepatitis (NASH); D69.3 Immune thrombocytopenic purpura; E83.42 Hypomagnesemia; R74.8 Abnormal levels of other serum enzymes; I10 Essential (primary) hypertension; E03.9 Hypothyroidism, unspecified; K76.0 Fatty (change of) liver, not elsewhere classified; F41.0 Panic disorder [episodic paroxysmal anxiety]; N83.202 Unspecified ovarian cyst, left side; E66.9 Obesity, unspecified; Z68.31 Body mass index [BMI] 31.0-31.9, adult; Z79.899 Other long term (current) drug therapy; Z98.82 Breast implant status
CPT/HCPCS: 74177; 80048; 80053; 80074; 80076; 81001; 82607; 82746; 83690; 83735; 84132; 84155; 84703; 85025; 87086; 87210; 87329; 87491; 87493; 87506; 87591; 87804; 96361; 96365; 96366; 96368; 96375; 99285; G0378; J0696; J2405; J3475; J3480; J7030; J7512; Q9967

== ENCOUNTER 2017-09-27 21:16 | Emergency (ER) | payer OTHER ==
[~2017-09-27 21:16] MED LIST changes: +KLORCONEF PO; -KLYTECL PO; +PRED20 PO
[2017-09-27 21:33] VITALS: BP 124/71; PULSE 114; RESP 18; TEMP 98.6
--- NOTE | 2017-09-27 23:08 | PD ---
HPI Chief Complaint: Alcohol/Drug Intoxication Time Seen by Provider: 22:52 Travel History International Travel<30 days: No Contact w/Intl Traveler<30days: No Traveled to known affect area: No History of Present Illness HPI 42-year-old white female presents to emergency department under [place] act by PD due to alcohol intoxication. The patient was found intoxicated in her vehicle. She was unable to care for herself and was brought to the ER. The patient here has no medical complaints. She is awake and alert but intoxicated. She states that she lives with her daughter who is at her parents [facility]. She been out drinking with a friend. She denies any suicidal homicidal ideation. PFSH Past Medical History Narrative Medical Anxiety, depression, hypertension, hypothyroidism Anxiety: Yes Heart Rhythm Problems: No Cancer: No Cardiovascular Problems: Yes High Cholesterol: No Chest Pain: No Congestive Heart Failure: No Diabetes: No Diminished Hearing: No Endocrine: Yes Gastrointestinal Disorders: No Genitourinary: No Hypertension: Yes Immune Disorder: No Implanted Vascular Access Dvce: Yes Musculoskeletal: No Neurologic: No Psychiatric: No Reproductive: No Respiratory: No Thyroid Disease: Yes (hypothyroid) ?: Not : 3 Para: 1 Miscarriage: 0 : 2 Past Surgical History Abdominal Surgery: Yes (appendectomy) AICD: No Appendectomy: Yes Arteriovenous Shunt: No Body Medical Devices: breast implants, plates in L ankle from surg repair Cardiac Surgery: No Section: Yes Ear Surgery: No Endocrine Surgery: No Eye Surgery: No Genitourinary Surgery: No Gynecologic Surgery: Yes () Insulin Pump: No Joint Replacement: No Oral Surgery: No Pacemaker: No Thoracic Surgery: No Other Surgery: Yes (Breast implants) Social History Alcohol Use: Yes (OCCASIONALLY) Tobacco Use: No Substance Use: No Allergies-Medications (Allergen,Severity, Reaction): Coded Allergies: No Known Allergies (Verified Allergy, Unknown, 09/27/17) Reported Meds & Prescriptions Reported Meds & Active Scripts Active Prednisone 20 Mg Tab 60 Mg PO DAILY 90 Days Synthroid (Levothyroxine Sodium) 88 Mcg Tab 88 Mcg PO DAILY@0600 Rocaltrol (Calcitriol) 0.25 Mcg Cap 0.25 Mcg PO DAILY Reported Vitamin D-1000 (Cholecalciferol) 1,000 Unit Tab 50,000 Units PO WEEKLY Prozac (Fluoxetine HCl) 40 Mg Cap 40 Mg PO DAILY Lisinopril 20 Mg Tab 20 Mg PO DAILY Review of Systems ROS Limitations: Intoxication Physical Exam Narrative GENERAL: Well-nourished, well-developed patient. Appears intoxicated. SKIN: Warm and dry. HEAD: Normocephalic and atraumatic. EYES: No scleral icterus. No injection or drainage. ENT: No nasal drainage noted. Mucous membranes pink. Airway patent. NECK: Supple, trachea midline. Moves head freely without obvious discomfort. CARDIOVASCULAR: Regular rate and rhythm without murmurs, gallops, or rubs. RESPIRATORY: Breath sounds equal bilaterally. No accessory muscle use. GASTROINTESTINAL: Abdomen soft, non-tender, nondistended. EXTREMITIES: No cyanosis or edema. BACK: Nontender without obvious deformity. No CVA tenderness. NEURO: Patient is alert and oriented. no sensorimotor deficits. Nonfocal. Slurred speech. Ataxic. PSYCH: No delusions. No auditory or visual hallucinations. Data Data Last Documented VS Vital Signs Date Time Temp Pulse Resp B/P (MAP) Pulse Ox O2 Delivery O2 Flow Rate FiO2 09/27/17 21:33 98.6 114 18 124/71 (88) Orders Orders Ed Discharge Order (09/27/17 23:03) MDM Medical Decision Making Medical Screen Exam Complete: Yes Emergency Medical Condition: Yes Medical Record Reviewed: Yes Differential Diagnosis Differential diagnoses: Alcohol intoxication, substance abuse, electrolyte abnormality, malingering Narrative Course Patient is alert and oriented and she is intoxicated. She does handle her secretions well. She is awake and pleasant. She's been instructed to call family members come pick her up which she has agreed to. This is alcohol intoxication Diagnosis Primary Impression: alcohol intoxication Patient Instructions: General Instructions Additional Instructions: Rest. Increase fluids. Avoid alcohol. Avoid illegal substances. Follow-up with [facility] for detox. Do not operate a car or any heavy machinery under the influence of alcohol or drugs. Follow-up with a medical doctor this week. Return to the ER for emergencies Med/Other Pt SpecificInfo: No Meds Exist/No RX given Disposition: 01 DISCHARGE HOME Condition: Stable Ld [place] Sep 27, 2017 23:08
== END 2017-09-27 23:41 | disposition home or self-care (01) ==
LOC: NEDAMB 21:16 → NEPD 23:41
DX: F10.129 Alcohol abuse with intoxication, unspecified (principal); E03.9 Hypothyroidism, unspecified; I10 Essential (primary) hypertension
CPT/HCPCS: 99283